=== PATIENT | female | born 1950 | race Caucasian/White ===

== ENCOUNTER → 2019-04-01 | Outpatient (CLI) | payer MEDICARE, OTHER ==
[~2019-04-01] MED LIST: ASP81TEC PO; CALC-80 PO; CALC600T PO; CALCIUM 600MG PO; ESTR1TAB14 PO; INSASP10V SQ; INSU100C; LEVO500T2 GT; LISI-556 PO; LISI5TAB PO; METO5TAB2 PO; NF-METANX PO; NITR100C PO; NOVALOG INSULIN; TRAM-21 PO
--- NOTE | 2019-04-01 16:52 | Diagnostic Imaging Report ---
INDICATION: Left forefoot pain for approximately two weeks. No known injury. TECHNIQUE: Three views of the left foot. CORRELATION STUDY: None. FINDINGS: The alignment is generally anatomic. There is no acute fracture. There is joint space narrowing and sclerosis through the tarsometatarsal-phalangeal joints, slightly more pronounced along the medial aspect. This also includes at the articulation of the navicular bones and cuneiforms. No significant calcaneal spur formation. Prominent vascular calcification. IMPRESSION: 1. Negative for acute findings of the foot. Advanced degenerative changes are present particularly at the tarsometatarsal articulations. Dictated by: Dictated on workstation # [id number]
== END ==
LOC: RAD 09:53
PROVIDERS: ATTEND Nurse Practitioner Family
DX: M19.072 Primary osteoarthritis, left ankle and foot (principal)
CPT/HCPCS: 73630

== ENCOUNTER → 2021-11-22 | Outpatient (CLI) | payer MEDICARE, OTHER ==
--- NOTE | 2021-11-22 11:02 | Diagnostic Imaging Report ---
INDICATION: Screening, postmenopausal COMPARISON: None FINDINGS: AP Spine L1-L4: [BMD (g/cm2): 1.037] [T-Score: -1.4] [Z-Score: 0.4] [BMD Previous: na] [BMD % Change: na] LT Hip Neck: [BMD (g/cm2): 0.682] [T-Score: -2.6] [Z-Score: -0.8] LT Hip Total: [BMD (g/cm2):0.766] [T-Score:-1.9] [Z-Score: -0.4] [BMD Previous: na] [BMD % Change: na] RT Hip Neck: [BMD (g/cm2):0.699] [T-Score:-2.4] [Z-Score:-0.7] RT Hip Total: [BMD (g/cm2):0.776] [T-score:-1.8] [Z-Score:-0.3] [BMD Previous:na] [BMD % Change:na] *Indicates significant change from prior examination based on 95% confidence level. World Health Organization criteria for BMD interpretation classify patients as Normal (T-score at or above -1.0), Osteopenic (T-score between -1.0 and -2.5) or Osteoporotic (T-score at or below -2.5). LIMITATIONS AND MODIFICATION: None. FRACTURE RISK (FRAX SCORE): The ten year probability of (%): Major Osteoporotic Fracture: [15.0] Hip Fracture: [4.1] IMPRESSION: 1. Osteopenia (Low bone mass). 2. See below National Osteoporosis Foundation guidelines on when to potentially initiate pharmacologic therapy. Based on the National Osteoporosis Foundation Guidelines, pharmacologic treatment should be initiated in any of the following, unless clinical conditions suggest otherwise: * Any patient with prior fragility fracture of the hip or vertebrae. A spine fracture indicates 5X risk for subsequent spine fracture and 2X risk for subsequent hip fracture. * Osteoporosis (T-score <-2.5). * Postmenopausal women and men age 50 and older with low bone mass/osteopenia (T-score between -1.0 and -2.5) by DXA and 10-year major osteoporotic fracture greater than 20% or a 10-year probability of hip fracture greater than 3%. These fracture risks are supplied above in the FRAX score, if applicable. * Clinician judgement and/or patient preferences may indicate treatment for people with 10-year fracture probabilities above or below these levels. Dictated by: Dictated on workstation # [id number]
--- NOTE | 2021-11-22 13:21 | Diagnostic Imaging Report ---
INDICATION: Routine screening. COMPARISON: 09/08/2014 and 01/08/2013. TECHNIQUE: 2D and 3D bilateral screening mammography was performed with CAD. FINDINGS: Both breasts are heterogeneously dense, limiting the sensitivity of mammography. The parenchymal pattern is stable. No mass or malignant-appearing microcalcifications are seen. The axillae are unremarkable. IMPRESSION: No mammographic features suspicious for malignancy are identified. ACR BI-RADS Category 1: Negative. Result letter will be mailed to the patient. Note: At least 10% of breast cancer is not imaged by mammography. Dictated by: Dictated on workstation # [id number]
== END ==
LOC: RAD 10:00
PROVIDERS: ATTEND Family Medicine
DX: Z12.31 Encounter for screening mammogram for malignant neoplasm of breast (principal); Z13.820 Encounter for screening for osteoporosis; M85.88 Other specified disorders of bone density and structure, other site; Z78.0 Asymptomatic menopausal state
CPT/HCPCS: 77063; 77067; 77080

== ENCOUNTER 2022-12-25 09:03 | Inpatient (IN) | payer MEDICARE, OTHER ==
[~2022-12-25] VITALS: Ht 160 cm; Wt 50.1 kg
--- NOTE | 2022-12-25 09:19 | ED General ---
General Chief Complaint: Glucose Problems Stated Complaint: DIABETIC ISSUES Source of Information: Patient Exam Limitations: No Limitations History of Present Illness Date Seen by Provider: December 25, 2022 Time Seen by Provider: 09:19 Initial Comments Patient is a 72-year-old female who presents to the emergency room with a chief complaint nausea, vomiting over the last 2 days. Patient is an insulin- dependent diabetic with an insulin pump. Her is with her and states that she is trying to drink and eat but has been unable to. She does feel lightheaded and dizzy. She however, is chronically dizzy. Last normal bowel movement was yesterday. She denies dysuria, urgency or frequency. No recent falls or injuries. No sick contacts at home. states that she has had multiple episodes of this in the past. She is a patient of Dr. CARY. No recent fevers or chills. No productive cough. Denies abdominal pain. States that she is currently a little nauseated. Timing/Duration: 2-3 Days Severity: Severe Associated Systoms: Malaise, Nausea/Vomiting, Weakness Allergies and Home Medications Allergies Coded Allergies: Penicillins (Unverified Allergy, Intermediate, hives, 03/15/10) acetaminophen (Unverified Adverse Reaction, Unknown, due to glucose monitor, 11/22/21) Patient Home Medication List Home Medication List Reviewed: Yes Amantadine HCl (Amantadine) 100 Mg Tablet, 50 MG PO BID, (Reported) Entered as Reported by: COLBY LLANOS on 12/25/221507 Last Action: Held Bimatoprost (Lumigan) 0.01 % Drops, 1 DROP OU BID, (Reported) Entered as Reported by: COLBY LLANOS on 12/25/22 090 Last Action: Converted Calcium Carbonate (Calcium) 600 Mg Calcium (1500 Mg) Tablet, 600 MG PO BID, (Reported) Entered as Reported by: COLBY LLANOS on 12/25/221507 Last Action: Held Insulin Aspart (Novolog) 100 Unit/Ml Susp, UNITS SC UD, (Reported) Entered as Reported by: COLBY LLANOS on 12/25/221507 Last Action: Continued Discontinued Medications Aspirin (Aspirin Ec 81 Mg) 81 Mg Tabec, 81 MG PO DAILY, (Reported) Discontinued Reason: Duplicate Order Entered as Reported by: ALEM KEVIN on 03/15/10 0813 Last Action: Discontinued Calcium Carbonate (Calcarb 600) 600 Mg Tablet, 600 MG PO DAILY, (Reported) Discontinued Reason: Duplicate Order Entered as Reported by: KANU SADLER on 11/29/12 1107 Last Action: Discontinued Estrogen,Con/M-Progest Acet (Prempro 0.3 Mg-1.5 Mg Tablet) 1 Each Tablet, 1 EACH PO HS, (Reported) Discontinued Reason: Duplicate Order Entered as Reported by: LUIS BENDER on 03/15/10528 Last Action: Discontinued Insulin Human Lispro (Humalog) 100 U/Ml Vial, 0 SQ, (Reported) Discontinued Reason: Duplicate Order Entered as Reported by: KANU SADLER on 11/29/12 1058 Last Action: Discontinued Lisinopril (Prinivil) 5 Mg Tablet, 5 MG PO DAILY, (Reported) Discontinued Reason: Duplicate Order Entered as Reported by: KANU SADLER on 11/29/12 1100 Last Action: Discontinued Me-Cobalam/Lm-Folate/Pyridoxal (Metanx Tablet) 1 Tab Tablet, 1 TAB PO DAILY, (Reported) Discontinued Reason: Duplicate Order Entered as Reported by: KANU SADLER on 11/29/12 1100 Last Action: Discontinued Tramadol Hcl (Ultram) 50 Mg Tablet, 50 MG PO Q6H PRN, (Reported) Discontinued Reason: Duplicate Order Entered as Reported by: LUIS BENDER on 03/15/10528 Last Action: Discontinued Review of Systems Review of Systems Constitutional: see HPI EENTM: no symptoms reported Respiratory: no symptoms reported Cardiovascular: no symptoms reported Gastrointestinal: nausea, vomiting Genitourinary: no symptoms reported Musculoskeletal: no symptoms reported Skin: no symptoms reported Psychiatric/Neurological: Weakness All Other Systems Reviewed Negative Unless Noted: Yes Past Pspyafg-Sshnyy-Jihmvw Hx Past Medical History Reproductive Disorders: No Physical Exam Vital Signs Vital Signs - First Documented 12/25/22 12/25/22 09:10 12:04 Temp 36.8 Pulse 116 Resp 22 B/P (MAP) 144/84 (104) Pulse Ox 95 O2 Delivery Room Air Capillary Refill : Height, Weight, BMI Height: '" Weight: lbs. oz. 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 Norm as Tested Skin: Normal Color, Warm/Dry Progress/Results/Core Measures Suspected Sepsis SIRS Temperature: Pulse: Respiratory Rate: Laboratory Tests 12/25/22 09:22: White Blood Count 10.2 Blood Pressure / Mean: Laboratory Tests 12/25/22 09:22: Creatinine 1.86H, Platelet Count 161, Total Bilirubin 0.6 Results/Orders Lab Results Laboratory Tests Test 12/25/22 09:22 12/25/22 09:28 12/25/22 09:53 12/25/22 10:25 Range/Units White Blood Count 10.2 4.3-11.0 10^3/uL Red Blood Count 4.87 3.80-5.11 10^6/uL Hemoglobin 14.1 11.5-16.0 g/dL Hematocrit 43 35-52 % Mean Corpuscular Volume 88 80-99 fL Mean Corpuscular Hemoglobin 29 25-34 pg Mean Corpuscular Hemoglobin Concent 33 32-36 g/dL Red Cell Distribution Width 12.7 10.0-14.5 % Platelet Count 161 130-400 10^3/uL Mean Platelet Volume 10.6 9.0-12.2 fL Immature Granulocyte % (Auto) 1 % Neutrophils (%) (Auto) 95 H 42-75 % Lymphocytes (%) (Auto) 3 L 12-44 % Monocytes (%) (Auto) 2 0-12 % Eosinophils (%) (Auto) 0 0-10 % Basophils (%) (Auto) 0 0-10 % Neutrophils # (Auto) 9.7 H 1.8-7.8 10^3/uL Lymphocytes # (Auto) 0.3 L 1.0-4.0 10^3/uL Monocytes # (Auto) 0.2 0.0-1.0 10^3/uL Eosinophils # (Auto) 0.0 0.0-0.3 10^3/uL Basophils # (Auto) 0.0 0.0-0.1 10^3/uL Immature Granulocyte # (Auto) 0.1 0.0-0.1 10^3/uL Neutrophils % (Manual) 92 % Lymphocytes % (Manual) 3 % Monocytes % (Manual) 5 % Blood Morphology Comment NORMAL Sodium Level 141 135-145 MMOL/L Potassium Level 4.3 3.6-5.0 MMOL/L Chloride Level 95 L 98-107 MMOL/L Carbon Dioxide Level 22 21-32 MMOL/L Anion Gap 24 H 5-14 MMOL/L Blood Urea Nitrogen 30 H 7-18 MG/DL Creatinine 1.86 H 0.60-1.30 MG/DL Estimat Glomerular Filtration Rate 29 BUN/Creatinine Ratio 16 Glucose Level 365 H 70-105 MG/DL Calcium Level 10.4 H 8.5-10.1 MG/DL Corrected Calcium 10.2 H 8.5-10.1 MG/DL Total Bilirubin 0.6 0.1-1.0 MG/DL Aspartate Amino Transf (AST/SGOT) 15 5-34 U/L Alanine Aminotransferase (ALT/SGPT) 15 0-55 U/L Alkaline Phosphatase 97 40-136 U/L Total Protein 7.8 6.4-8.2 GM/DL Albumin 4.2 3.2-4.5 GM/DL Lipase 5 L 8-78 U/L Beta-Hydroxybutyrate (Chem panel) 6.35 H 0.00-0.27 MMOL/L Glucometer 363 H 70-110 MG/DL Blood Gas Puncture Site R WRIST Blood Gas Patient Temperature 36.8 Arterial Blood pH 7.41 7.37-7.43 Arterial Blood Partial Pressure CO2 41 35-45 MMHG Arterial Blood Partial Pressure O2 76 L 79-93 MMHG Arterial Blood HCO3 25 23-27 MMOL/L Arterial Blood Total CO2 26.4 21.0-31.0 MMOL/L Arterial Blood Oxygen Saturation 97 94-100 % Arterial Blood Base Excess 1.0 -2.5-2.5 MMOL/L Angelo Test YES-POS Blood Gas Ventilator Setting NO Blood Gas Inspired Oxygen RA Urine Color YELLOW Urine Clarity CLEAR Urine pH 6.0 5-9 Urine Specific Mccall 1.025 H 1.016-1.022 Urine Protein TRACE H NEGATIVE Urine Glucose (UA) 3+ H NEGATIVE Urine Ketones 3+ H NEGATIVE Urine Nitrite NEGATIVE NEGATIVE Urine Bilirubin NEGATIVE NEGATIVE Urine Urobilinogen 0.2 < = 1.0 MG/DL Urine Leukocyte Esterase 2+ H NEGATIVE Urine RBC (Auto) 2+ H NEGATIVE Urine RBC 5-10 H /HPF Urine WBC >100 H /HPF Urine Squamous Epithelial Cells 10-25 H /HPF Urine Crystals NONE /LPF Urine Bacteria LARGE H /HPF Urine Casts NONE /LPF Urine Mucus NEGATIVE /LPF Urine Culture Indicated YES Micro Results Microbiology 12/25/22 Urine Culture - Preliminary, Resulted Escherichia coli Beta Strep Grp B (Agalactiae) My Orders Orders - KRYSTAL CHAU MD Ed Iv/Invasive Line Start (12/25/22 09:26) Cbc With Automated Diff (12/25/22 09:26) Comprehensive Metabolic Panel (12/25/22:26) Lipase (12/25/22:26) Ua Culture If Indicated (12/25/22:26) Beta Hydroxybutyrate (12/25/22 09:26) Ns Iv 1000 Ml (Sodium Chloride 0.9%) (12/25/22 09:26) Ondansetron Injection (Zofran Injectio (12/25/22 09:30) Manual Differential (12/25/22 09:22) Arterial Blood Gas (12/25/22 09:56) Ns Iv 1000 Ml (Sodium Chloride 0.9%) (12/25/22 10:09) Arterial Blood Draw - Obtain (12/25/22 ) Urine Culture (12/25/22 10:25) Accucheck Stat ONCE (12/25/22 11:14) Ceftriaxone Iv/Im (Rocephin Iv/Im) (12/25/22 11:15) Ondansetron Injection (Zofran Injectio (12/25/22 11:30) Medications Given in ED Vital Signs/I&O 12/25/22 12/25/22 09:10 12:04 Temp 36.8 Pulse 116 112 Resp 22 20 B/P (MAP) 144/84 (104) 139/69 Pulse Ox 95 96 O2 Delivery Room Air Room Air Capillary Refill : Progress Note : Progress Note Patient seen and evaluated by me. Evaluation today includes physical exam, CBC, Chem-12, ABG, beta hydroxy butyric acid level and urinalysis. Chest x-ray was also performed. Pertinent physical exam findings, thin ill-appearing 72-year-old female mild distress due to abdominal discomfort and nausea. Patient is noted to be quite tachycardic on physical exam with a heart rate in the 120-130 range. Blood pressure is good. She is 96% on room air. Alert and oriented with no focal neurologic deficits. Appears pale. Heart is regular, tachycardic, lungs are clear. Abdomen mildly tender in the suprapubic region without rebound or involuntary guarding. Moves all extremities equally. No lower extremity edema. Insulin pump in place. Differential diagnosis based on history and physical exam, sepsis from urinary tract infection, possible pulmonary infection, bowel obstruction, DKA. Labs and imaging interpreted by me. CBC shows a white count of 10.2 with 95% se gs hemoglobin 14.1 hematocrit of 43 platelet count of 161. Chemistry remarkable for a BUN of 30, creatinine of 1.86, CO2 22 and serum blood sugar 365. Beta hydroxybutyric acid level 6.35. ABG is reassuring with a pH of 7.41 PCO2 of 41 PO2 of 7697% on room air. Urine is grossly infected with a specific gravity of 1.025, trace protein, 3+ ketones, 3+ glucose, 2+ leukocyte esterase. 5-10 red blood cells greater than 100 white blood cells and large bacteria. Patient was treated in the emergency room with IV fluids, nausea medication and 1 g of Rocephin to treat urinary tract infection. Patient definitely has SIRS, does not quite meet sepsis criteria. Only abnormal vital signs is her pulse. She is afebrile, normal blood pressure. Abdominal exam is fairly benign making intra- abdominal pathology with regard to bowel obstruction less likely. She is borderline DKA, pH is normal. Chest x-ray does not reveal evidence of infiltrate. Case was discussed with Dr. Cary, the patient's primary care physician. She will be started on antibiotics, insulin per sliding scale. Admitted to the medical floor. Patient and family member comfortable with plan of care Diagnostic Imaging Diagonstic Imaging: Xray Plain Films/CT/US/NM/MRI: chest Comments [facility]. [place], [place] NAME: ADARSH MANDUJANO [facility] REC#: [id number] PT STATUS: ADM IN : 1950 PHYSICIAN: CRISTINE CARY MD ADMIT DATE: 12/26/22 Signed Date of Exam:12/26/22 CT CHEST/ABDOMEN WO PROCEDURE: CT chest and abdomen without contrast. TECHNIQUE: Axial images were obtained from the thoracic inlet through the iliac crest without the administration of intravenous contrast. Auto Exposure Controls were utilized during the CT exam to meet ALARA standards for radiation dose reduction. INDICATION: Abdominal pain and chest discomfort. COMPARISON: None available. FINDINGS: CT CHEST: Thyroid is normal. No supraclavicular or axillary lymphadenopathy. No discrete hilar lymphadenopathy. The heart is normal in size without pericardial effusion. Mild circumferential wall thickening throughout the distal one-half of the esophagus. No abnormality in the trachea. There are no suspicious pulmonary nodules. No pneumonia or edema. Trace right pleural effusion. No worrisome focal osseous lesions in the chest. CT ABDOMEN: No free intraperitoneal air or fluid. Unenhanced liver, gallbladder, and spleen are normal. Unenhanced pancreas is unremarkable. No adrenal mass. No renal or ureteral stones. No obstructive uropathy. No solid renal mass by noncontrast imaging. No dilated loops of bowel or surrounding inflammatory change. No worrisome focal osseous lesions in the abdomen. IMPRESSION: 1. Abnormal circumferential wall thickening in the distal one-half of the esophagus could be due to esophagitis. Malignancy could also give this appearance, and correlation with EGD is suggested. 2. Trace bilateral pleural effusions. 3. No acute or concerning abnormality within the abdomen. Dictated by: Dictated on workstation # [id number] Dict: 12/26/221720 Trans: 12/26/221752 [id number] Interpreted by: PATRIZIA CHRISTOPHER MD Electronically signed by: PATRIZIA CHRISTOPHER MD 12/26/221752 Departure Communication (Admissions) Time/Spoke to Admitting Phy: 11:[address] Cary (patient's PCP) Impression Primary Impression: UTI (urinary tract infection) Qualified Codes: N30.00 - Acute cystitis without hematuria Additional Impressions: Hyperglycemia Dehydration Disposition: ADMITTED INPATIENT Condition: Stable Admissions Decision to Admit Reason: Admit from ER (General) Decision to Admit/Date: December 25, 2022 Time/Decision to Admit Time: 11:38 Departure-Patient Inst. Referrals: CRISTINE CARY MD (PCP/Family) Primary Care Physician KRYSTAL CHAU MD December 25, 2022 09:19
[2022-12-25] MEDS ORDERED: NS IV 1000 ML 1,000 ML IV STA ×2 (09:26→10:09)
[2022-12-25] MEDS ORDERED: ONDANSETRON 4 MG/2 ML (SDV) Z0FRAN IVP ONE ×2 (09:30→11:30)
[2022-12-25 09:32] LABS: BASOPHILS % (AUTO) 0 % (0-10); EOSINOPHILS % (AUTO) 0 % (0-10); HEMATOCRIT 43 % (35-52); HEMOGLOBIN 14.1 g/dL (11.5-16.0); LYMPHOCYTES # (AUTO) 0.3 10^3/uL (1.0-4.0); LYMPHOCYTES % (AUTO) 3 % (12-44); MEAN CORPUSCULAR HEMOGLOBIN 29 pg (25-34); MEAN CORPUSCULAR HGB CONC 33 g/dL (32-36); MEAN CORPUSCULAR VOLUME 88 fL (80-99); MEAN PLATELET VOLUME 10.6 fL (9.0-12.2); MONOCYTES # (AUTO) 0.2 10^3/uL (0.0-1.0); MONOCYTES % (AUTO) 2 % (0-12); NEUTROPHILS # (AUTO) 9.7 10^3/uL (1.8-7.8); NEUTROPHILS % (AUTO) 95 % (42-75); PLATELET COUNT 161 10^3/uL (130-400); WHITE BLOOD COUNT 10.2 10^3/uL (4.3-11.0)
[2022-12-25 09:40] LABS: ALBUMIN 4.2 GM/DL (3.2-4.5); POTASSIUM 4.3 MMOL/L (3.6-5.0)
[2022-12-25 09:41] LABS: CALCIUM 10.4 MG/DL (8.5-10.1)
[2022-12-25 09:42] LABS: TOTAL PROTEIN 7.8 GM/DL (6.4-8.2)
[2022-12-25 09:44] LABS: BILIRUBIN,TOTAL 0.6 MG/DL (0.1-1.0)
[2022-12-25 09:46] LABS: CREATININE SERUM 1.86 MG/DL (0.60-1.30)
[2022-12-25 10:03] LABS: ABG OXYGEN SATURATION 97 % (94-100); ABG PCO2 41 MMHG (35-45); ABG PH 7.41 (7.37-7.43); ABG PO2 76 MMHG (79-93); ABG TCO2 26.4 MMOL/L (21.0-31.0); ALLENS TEST YES-POS; INSPIRED O2 RA; PATIENT TEMP 36.8; VENTILATOR NO
[2022-12-25 10:03] LABS: LYMPHOCYTES % (MANUAL) 3 %; MONOCYTES % (MANUAL) 5 %; NEUTROPHILS % (MANUAL) 92 %
[2022-12-25 10:04] LABS: RBC MORPH NORMAL
[2022-12-25 10:36] LABS: BILIRUBIN,URINE NEGATIVE (NEGATIVE); CLARITY,URINE CLEAR; COLOR,URINE YELLOW; GLUCOSE, URINE (UA) 3+ (NEGATIVE); KETONES,URINE 3+ (NEGATIVE); LEUKOCYTE ESTERASE ,URINE 2+ (NEGATIVE); NITRITE,URINE NEGATIVE (NEGATIVE); PROTEIN,URINE TRACE (NEGATIVE)
[2022-12-25 10:49] LABS: BACTERIA,URINE LARGE /HPF; WBC,URINE >100 /HPF
[2022-12-25] MEDS ORDERED: cefTRIAXone IV/IM 1,000 MG in NS (IVPB) 50 ML IV ONE (11:15)
[2022-12-25 13:14] VITALS: BP 139/69
[2022-12-25] MEDS: NS IV 1000 ML 1,000 ML IV SCH ×2 (13:27→20:33)
[2022-12-25] MEDS ORDERED: CALC600T91 PO (15:08)
[2022-12-25] MEDS ORDERED: INSU100V16 SC (15:08)
[2022-12-25] MEDS ORDERED: AMAN100T PO (15:08)
[2022-12-25] MEDS ORDERED: BIMA2.5D4 OU (15:09)
[2022-12-25 16:00] VITALS: BP 146/74
[2022-12-25] MEDS ORDERED: inSUlin ASPART (NovoLOG) 1 UNIT/0.01 ML (CHARGE PER UNIT) SC SCH ×2 (16:00→20:00)
--- NOTE | 2022-12-25 18:18 | History & Physical ---
History of Present Illness History of Present Illness Reason for visit/HPI Pt is a 72 y/o female who presented to the ER after having nausea and confusion. Pt is a brittle insulin dependent diabetic who has not been able to eat or drink well for several days. Her finally convinced her to go to the ER where she was found to have generalized weakness, acute elevation of her renal function and possible UTI. She was admitted for hydration and further work-up. Date of Admission December 25, 2022 at 12:19 Date Seen by a Provider: December 25, 2022 Time Seen by a Provider: 17:50 Attending Physician Cristine Cary MD Admitting Physician Admitting Physician: Cristine Cary MD Attending Physician: Cristine Cary MD Consult Allergies and Home Medications Allergies Coded Allergies: Penicillins (Unverified Allergy, Intermediate, hives, 03/15/10) acetaminophen (Unverified Adverse Reaction, Unknown, due to glucose monitor, 11/22/21) Patient Home Medication List Home Medication List Reviewed: Yes Amantadine HCl (Amantadine) 100 Mg Tablet, 50 MG PO BID, (Reported) Entered as Reported by: COLBY LLANOS on 12/25/221507 Last Action: Held Bimatoprost (Lumigan) 0.01 % Drops, 1 DROP OU BID, (Reported) Entered as Reported by: COLBY LLANOS on 12/25/221508 Last Action: Converted Calcium Carbonate (Calcium) 600 Mg Calcium (1500 Mg) Tablet, 600 MG PO BID, (Reported) Entered as Reported by: COLBY LLANOS on 12/25/221507 Last Action: Held Insulin Aspart (Novolog) 100 Unit/Ml Susp, UNITS SC UD, (Reported) Entered as Reported by: COLBY LLANOS on 12/25/221507 Last Action: Continued Discontinued Medications Aspirin (Aspirin Ec 81 Mg) 81 Mg Tabec, 81 MG PO DAILY, (Reported) Discontinued Reason: Duplicate Order Entered as Reported by: ALEM KEVIN on 03/15/10 0855 Last Action: Discontinued Calcium Carbonate (Calcarb 600) 600 Mg Tablet, 600 MG PO DAILY, (Reported) Discontinued Reason: Duplicate Order Entered as Reported by: KANU SADLER on 11/29/12 1107 Last Action: Discontinued Estrogen,Con/M-Progest Acet (Prempro 0.3 Mg-1.5 Mg Tablet) 1 Each Tablet, 1 EACH PO HS, (Reported) Discontinued Reason: Duplicate Order Entered as Reported by: LUIS BENDER on 03/15/10528 Last Action: Discontinued Insulin Human Lispro (Humalog) 100 U/Ml Vial, 0 SQ, (Reported) Discontinued Reason: Duplicate Order Entered as Reported by: KANU SADLER on 11/29/12 1058 Last Action: Discontinued Lisinopril (Prinivil) 5 Mg Tablet, 5 MG PO DAILY, (Reported) Discontinued Reason: Duplicate Order Entered as Reported by: KANU SADLER on 11/29/12 1100 Last Action: Discontinued Me-Cobalam/Lm-Folate/Pyridoxal (Metanx Tablet) 1 Tab Tablet, 1 TAB PO DAILY, (Reported) Discontinued Reason: Duplicate Order Entered as Reported by: KANU SADLER on 11/29/12 1100 Last Action: Discontinued Tramadol Hcl (Ultram) 50 Mg Tablet, 50 MG PO Q6H PRN, (Reported) Discontinued Reason: Duplicate Order Entered as Reported by: LUIS BENDER on 03/15/10528 Last Action: Discontinued Past Ytttzce-Bqvgbg-Nfuovu Hx Patient Social History Marrital Status: Living Status: lives at home with spouse Employed/Student: retired Tobacco Use?: No Smoking Status: Never a Smoker Use of E-Cig and/or Vaping dev: No Substance use?: No Alcohol Use?: No Pt feels they are or have been: No Immunizations Up To Date Tetanus Booster (TDap): More Than 5 Years Hepatitis A: No Hepatitis B: No Date of Pneumonia Vaccine: May 20, 2012 Current Status status: No status: No Advance Directives: Yes Advance Directive Location: Home Communicates: Verbally Primary Language: Faroese Preferred Spoken Language: Faroese Is interpretation needed?: No Sensory deficits: Vision impairment Implanted or Applied Medical D: Insulin pump Past Medical History Currently Using CPAP: No Currently Using BIPAP: No Parkinson's Disease Sexually Transmitted Disease: No HIV/AIDS: No Arthritis Diabetes, Insulin dep Are Your Blood Sugars Over 250: No Loss of Vision: Denies Hearing Impairment: Hard of Hearing Did You Recieve Any Treatments: No Family Medical History Reviewed and Corrections made Hypertension Review of Systems Constitutional: No chills, No diaphoresis, No fever; malaise, weakness EENTM: hearing loss; No hoarseness, No throat pain Respiratory: No cough, No dyspnea on exertion, No short of breath Cardiovascular: No edema, No palpitations Gastrointestinal: abdominal pain, loss of appetite, nausea, vomiting Genitourinary: no symptoms reported Musculoskeletal: no symptoms reported Skin: no symptoms reported Psychiatric/Neurological: Weakness All Other Systems Reviewed Negative Unless Noted: Yes Physical Exam Vital Signs Vital Signs - First Documented 12/25/22 12/25/22 09:10 12:04 Temp 36.8 Pulse 116 Resp 22 B/P (MAP) 144/84 (104) Pulse Ox 95 O2 Delivery Room Air Capillary Refill : Height, Weight, BMI Height: '" Weight: lbs. oz. kg; 19.57 BMI Method:Stated General Appearance: No Apparent Distress, Chronically ill HEENT: PERRL/EOMI, Pharynx Normal Neck: Supple Respiratory: Chest Non Tender, Lungs Clear, Normal Breath Sounds, No Accessory Muscle Use, No Respiratory Distress Cardiovascular: Regular Rate, Rhythm, No Murmur, Normal Peripheral Pulses Gastrointestinal: Normal Bowel Sounds, Soft, Tenderness (epigastric) Rectal: Deferred Back: Normal Inspection, No Vertebral Tenderness Extremity: Normal Capillary Refill, Normal Range of Motion, Non Tender, No Calf Tenderness, No Pedal Edema Neurologic/Psychiatric: Alert, Oriented x3, Other (flat affect) Skin: Normal Color, Warm/Dry Lymphatic: No Adenopathy Assessment/Plan Assessment and Plan Hyperglycemia Dehydration Acute renal failure due to dehydration Hypertension Confusion Weakness Nausea Hyperglycemia - continue with insulin pump - pt on sliding scale "A" for now as well Dehydration with Acute renal failure due to dehydration - hydrate with iv fluids, monitor symptoms, repeat labs in morning Hypertension - pt usually hypotensive - monitor pressure, treat with antihypertensives if needed. Confusion and Weakness - pt fairly clear on my eval - will monitor pt closely Nausea and Emesis - pt on zofran, monitor symptoms, hopefully will have better appetite once nausea improves Admission Diagnosis Hyperglycemia Dehydration Acute renal failure due to dehydration Hypertension Confusion Weakness Nausea Emesis Admission Status: Observation CRISTINE CARY MD December 25, 2022 18:17
[2022-12-25 20:00] VITALS: BP 150/86
[2022-12-25] MEDS: ONDANSETRON 4 MG/2 ML (SDV) Z0FRAN IV PRN (20:33)
[2022-12-25] MEDS: inSUlin ASPART (NovoLOG) 1 UNIT/0.01 ML (CHARGE PER UNIT) SC SCH (21:50)
[2022-12-25 23:33] VITALS: BP 164/82
[2022-12-26] MEDS ORDERED: inSUlin ASPART (NovoLOG) 1 UNIT/0.01 ML (CHARGE PER UNIT) SC ONE (00:15)
[2022-12-26 03:06] VITALS: BP 151/78
[2022-12-26] MEDS: ONDANSETRON 4 MG/2 ML (SDV) Z0FRAN IV PRN (03:47)
[2022-12-26] MEDS: NS IV 1000 ML 1,000 ML IV SCH ×3 (03:47→15:48)
[2022-12-26 04:51] LABS: CALCIUM 8.8 MG/DL (8.5-10.1); CREATININE SERUM 1.5 MG/DL (0.60-1.30); POTASSIUM 3.6 MMOL/L (3.6-5.0)
[2022-12-26] MEDS: inSUlin ASPART (NovoLOG) 1 UNIT/0.01 ML (CHARGE PER UNIT) SC SCH ×4 (05:22→21:17)
[2022-12-26 08:00] VITALS: BP 142/78
--- NOTE | 2022-12-26 09:41 | Progress Note ---
Subjective Subjective Date Seen by Provider: December 26, 2022 Time Seen by Provider: 08:20 Pt reports that she feels worse today than yesterday evening. Her states that he is worried about her health, does not feel as if she is okay to be taken home. She reports pain in her chest/esophageal region. She has weakness and persistent tremors from ehr Parkinsons disease. Review of Systems General: No Chills; Fatigue, Malaise Pulmonary: No Dyspnea, No Cough Cardiovascular: No: Chest Pain, Palpitations Gastrointestinal: Nausea, Vomiting, Abdominal Pain Genitourinary: Frequency Neurological: Weakness, Confusion All Other Systems Reviewed All Other Systems Reviewed: Yes Objective Exam Vital Signs Vital Signs Date Time Temp Pulse Resp B/P (MAP) Pulse Ox O2 Delivery O2 Flow Rate FiO2 12/26/22 03:06 36.6 106 14 151/78 (102) 93 Room Air 12/25/22 23:33 36.9 105 12 164/82 (109) 97 Room Air 12/25/22 20:00 96 Room Air 12/25/22 20:00 37.4 107 14 150/86 (107) 97 Room Air 12/25/22 16:00 37.5 110 16 146/74 (98) 95 Room Air 12/25/22 13:14 36.8 112 96 12/25/22 12:04 36.8 112 20 139/69 96 Room Air I & O 12/26/22 07:00 Intake Total 4645 ml Output Total 525 ml Balance 4120 ml General Appearance: Thin, Other (frail, ill appearing) Eyes: Bilateral Eye Normal Inspection, Bilateral Eye PERRL, Bilateral Eye EOMI HEENT: PERRL/EOMI Neck: Normal Inspection Respiratory: Lungs Clear, Normal Breath Sounds, No Accessory Muscle Use, No Respiratory Distress Cardiovascular: Regular Rate, Rhythm, Normal Peripheral Pulses, Tachycardia (122) Gastrointestinal: Non Tender, Soft Extremity: Normal Inspection, Normal Range of Motion, No Pedal Edema Neurologic/Psychiatric: Alert, Oriented x3, No Motor/Sensory Deficits, Normal Mood/Affect, cell 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 II-XII Norm as Tested Skin: Normal Color, Warm/Dry Results Lab Laboratory Tests 12/25/22 09:53: Blood Gas Puncture Site R WRIST, Blood Gas Patient Temperature 36.8, Arterial Blood pH 7.41, Arterial Blood Partial Pressure CO2 41, Arterial Blood Partial Pressure O2 76L, Arterial Blood HCO3 25, Arterial Blood Total CO2 26.4, Arterial Blood Oxygen Saturation 97, Arterial Blood Base Excess 1.0, Angelo Test YES-POS, Blood Gas Ventilator Setting NO, Blood Gas Inspired Oxygen RA 12/25/22 10:25: Urine Color YELLOW, Urine Clarity CLEAR, Urine pH 6.0, Urine Specific [place] 1.025H, Urine Protein TRACEH, Urine Glucose (UA) 3+H, Urine Ketones 3+H, Urine Nitrite NEGATIVE, Urine Bilirubin NEGATIVE, Urine Urobilinogen 0.2, Urine Leukocyte Esterase 2+H, Urine RBC (Auto) 2+H, Urine RBC 5-10H, Urine WBC >100H, Urine Squamous Epithelial Cells 10-25H, Urine Crystals NONE, Urine Bacteria LARGEH, Urine Casts NONE, Urine Mucus NEGATIVE, Urine Culture Indicated YES 12/25/22 16:18: Glucometer 378H 12/25/22 20:54: Glucometer 450*H 12/25/22 23:30: Glucometer 337H 12/26/22 00:35: Glucometer 274H 12/26/22 04:11: Sodium Level 142, Potassium Level 3.6, Chloride Level 104, Carbon Dioxide Level 24, Anion Gap 14, Blood Urea Nitrogen 27H, Creatinine 1.50H, Estimat Glomerular Filtration Rate 37, BUN/Creatinine Ratio 18, Glucose Level 196H, Calcium Level 8.8 12/26/22 07:23: Glucometer 178H Microbiology 12/25/22 Urine Culture - Preliminary, Resulted Escherichia coli Beta Strep Grp B (Agalactiae) Assessment/Plan Assessment/Plan Assessment and Plan Hyperglycemia Dehydration Urinary tract infection - EColi Acute renal failure due to dehydration Hypertension Confusion Weakness Nausea Hyperglycemia - continue with insulin pump - pt was on sliding scale "A" - changed to sliding scale "B" due to persistently elevated blood glucose levels. Dehydration with Acute renal failure due to dehydration - hydrate with iv fluids, monitor symptoms, repeat labs in morning Urinary tract infection - EColi - pt on rocephin continue with current management Hypertension - pt usually hypotensive - monitor pressure, treat with antihypertensives if needed. Confusion and Weakness - pt fairly clear on my eval - will monitor pt closely Nausea and Emesis - pt on zofran, monitor symptoms, hopefully will have better appetite once nausea improves Pt had a positive cologuard in the office, will check CT of chest, abdomen CRISTINE STUBBS MD December 26, 2022 09:41
[2022-12-26] MEDS ORDERED: inSUlin ASPART (NovoLOG) 1 UNIT/0.01 ML (CHARGE PER UNIT) SC SCH (10:00)
[2022-12-26] MEDS: cefTRIAXone 1 GM/NS 50 ML IVPB IV SCH ×2 (10:45)
[2022-12-26] MEDS: PANTOPRAZOLE 40 MG (PROTONIX) VIAL IV SCH ×2 (10:45→20:27)
[2022-12-26] MEDS ORDERED: ACETAMINOPHEN 500 MG TAB (TYLENOL) PO PRN (11:00)
[2022-12-26 13:16] VITALS: BP 128/61
[2022-12-26] MEDS: DICLOFENAC 1% GEL 100 GM (VOLTAREN) TUBE TOP SCH ×3 (13:50→20:28)
[2022-12-26 16:41] VITALS: BP 156/69
--- NOTE | 2022-12-26 17:27 | Diagnostic Imaging Report ---
PROCEDURE: CT chest and abdomen without contrast. TECHNIQUE: Axial images were obtained from the thoracic inlet through the iliac crest without the administration of intravenous contrast. Auto Exposure Controls were utilized during the CT exam to meet ALARA standards for radiation dose reduction. INDICATION: Abdominal pain and chest discomfort. COMPARISON: None available. FINDINGS: CT CHEST: Thyroid is normal. No supraclavicular or axillary lymphadenopathy. No discrete hilar lymphadenopathy. The heart is normal in size without pericardial effusion. Mild circumferential wall thickening throughout the distal one-half of the esophagus. No abnormality in the trachea. There are no suspicious pulmonary nodules. No pneumonia or edema. Trace right pleural effusion. No worrisome focal osseous lesions in the chest. CT ABDOMEN: No free intraperitoneal air or fluid. Unenhanced liver, gallbladder, and spleen are normal. Unenhanced pancreas is unremarkable. No adrenal mass. No renal or ureteral stones. No obstructive uropathy. No solid renal mass by noncontrast imaging. No dilated loops of bowel or surrounding inflammatory change. No worrisome focal osseous lesions in the abdomen. IMPRESSION: 1. Abnormal circumferential wall thickening in the distal one-half of the esophagus could be due to esophagitis. Malignancy could also give this appearance, and correlation with EGD is suggested. 2. Trace bilateral pleural effusions. 3. No acute or concerning abnormality within the abdomen. Dictated by: Dictated on workstation # [id number]
[2022-12-26] MEDS ORDERED: fluCOnazole (DIFLUCAN) 100 MG TAB PO NR (18:00)
[2022-12-26] MEDS: LATANOPROST 0.005% (XALATAN) OPHTH SOLN 2.5 ML OU SCH (20:28)
[2022-12-26 20:49] VITALS: BP 142/80
[2022-12-26] MEDS ORDERED: NON-FORMULARY MEDICATION 1 EA EA (Bimatoprost (Lumigan) 1 DROP) OU SCH (21:00)
[2022-12-26 23:41] VITALS: BP 152/82
[2022-12-27 04:00] VITALS: BP 137/80
[2022-12-27] MEDS: NS IV 1000 ML 1,000 ML IV SCH ×2 (04:46→17:30)
[2022-12-27 04:48] LABS: MEAN PLATELET VOLUME 10.6 fL (9.0-12.2); WHITE BLOOD COUNT 9.2 10^3/uL (4.3-11.0)
[2022-12-27 04:56] LABS: POTASSIUM 3.4 MMOL/L (3.6-5.0)
[2022-12-27 04:57] LABS: CALCIUM 8.5 MG/DL (8.5-10.1)
[2022-12-27 05:02] LABS: CREATININE SERUM 1.07 MG/DL (0.60-1.30)
[2022-12-27] MEDS: inSUlin ASPART (NovoLOG) 1 UNIT/0.01 ML (CHARGE PER UNIT) SC SCH ×4 (05:27→20:42)
[2022-12-27 07:55] VITALS: BP 144/84
--- NOTE | 2022-12-27 08:01 | Progress Note ---
Subjective Review of Systems General: No Chills; Fatigue, Malaise Pulmonary: No Dyspnea, No Cough Cardiovascular: No: Chest Pain, Palpitations Gastrointestinal: Nausea, Vomiting, Abdominal Pain Genitourinary: Frequency Neurological: Weakness, Confusion All Other Systems Reviewed All Other Systems Reviewed: Yes Objective Exam Vital Signs Vital Signs Date Time Temp Pulse Resp B/P (MAP) Pulse Ox O2 Delivery O2 Flow Rate FiO2 12/27/22 07:55 36.8 83 18 144/84 (104) 95 Room Air 12/27/22 04:00 36.6 88 18 137/80 (99) 94 Room Air 12/26/22 23:41 36.6 91 18 152/82 (105) 94 Room Air 12/26/22 20:49 37.3 94 18 142/80 (100) 94 Room Air 12/26/22 20:00 Room Air 12/26/22 16:41 37.1 102 18 156/69 (98) Room Air 12/26/22 13:16 36.6 92 18 128/61 (83) 95 Room Air 12/26/22 12:00 37.1 88 16 I & O 12/27/22 06:59 Intake Total 750 ml Balance 750 ml General Appearance: Thin, Other (frail, ill appearing) Eyes: Bilateral Eye Normal Inspection, Bilateral Eye PERRL, Bilateral Eye EOMI HEENT: PERRL/EOMI Neck: Normal Inspection Respiratory: Lungs Clear, Normal Breath Sounds, No Accessory Muscle Use, No Respiratory Distress Cardiovascular: Regular Rate, Rhythm, Normal Peripheral Pulses, Tachycardia (122) Gastrointestinal: Non Tender, Soft Rectal: Deferred Back: Normal Inspection, No Vertebral Tenderness Extremity: Normal Inspection, Normal Range of Motion, No Pedal Edema Neurologic/Psychiatric: Alert, Oriented x3, No Motor/Sensory Deficits, Normal Mood/Affect, central 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-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 Norm as Tested Skin: Normal Color, Warm/Dry Lymphatic: No Adenopathy Results Lab Laboratory Tests 12/26/22 16:39: Glucometer 248H 12/26/22 20:59: Glucometer 223H 12/27/22 04:32: White Blood Count 9.2, Red Blood Count 4.17, Hemoglobin 12.0, Hematocrit 36, Mean Corpuscular Volume 87, Mean Corpuscular Hemoglobin 29, Mean Corpuscular Hemoglobin Concent 33, Red Cell Distribution Width 12.6, Platelet Count 122L, Mean Platelet Volume 10.6, Percent Immature Platelet Fraction 2.4, Sodium Level 139, Potassium Level 3.4L, Chloride Level 104, Carbon Dioxide Level 20L, Anion Gap 15H, Blood Urea Nitrogen 15, Creatinine 1.07, Estimat Glomerular Filtration Rate 56, BUN/Creatinine Ratio 14, Glucose Level 157H, Calcium Level 8.5 Microbiology 12/25/22 Urine Culture - Preliminary, Resulted Escherichia coli Beta Strep Grp B (Agalactiae) Assessment/Plan Assessment/Plan Admission Dx Hyperglycemia Dehydration Acute renal failure due to dehydration Hypertension Confusion Weakness Nausea Emesis Assessment and Plan Hyperglycemia Dehydration Urinary tract infection - EColi Acute renal failure due to dehydration Hypertension Confusion Weakness Nausea Hyperglycemia - continue with insulin pump - pt was on sliding scale "A" - changed to sliding scale "B" due to persistently elevated blood glucose levels. Dehydration with Acute renal failure due to dehydration - hydrate with iv fluids, monitor symptoms, repeat labs in morning Urinary tract infection - EColi - pt on rocephin continue with current management Hypertension - pt usually hypotensive - monitor pressure, treat with antihypertensives if needed. Confusion and Weakness - pt fairly clear on my eval - will monitor pt closely Nausea and Emesis - pt on zofran, monitor symptoms, hopefully will have better appetite once nausea improves Pt had a positive cologuard in the office, will check CT of chest, abdomen Admission Dx Hyperglycemia Dehydration Acute renal failure due to dehydration Hypertension Confusion Weakness Nausea Emesis Clinical Quality Measures Admission Status Admission Dx Hyperglycemia Dehydration Acute renal failure due to dehydration Hypertension Confusion Weakness Nausea Emesis CRISTINE STUBBS MD December 27, 2022 08:01
[2022-12-27] MEDS: PANTOPRAZOLE 40 MG (PROTONIX) VIAL IV SCH ×2 (09:34→19:39)
[2022-12-27] MEDS: fluCOnazole (DIFLUCAN) 100 MG TAB PO SCH (09:35)
[2022-12-27] MEDS: DICLOFENAC 1% GEL 100 GM (VOLTAREN) TUBE TOP SCH ×4 (09:38→19:39)
[2022-12-27] MEDS: cefTRIAXone 1 GM/NS 50 ML IVPB IV SCH ×2 (11:34)
--- NOTE | 2022-12-27 11:50 | Physical Therapy Evaluation ---
PT Evaluation-General Medical Diagnosis Admission Date December 26, 2022 at 09:41 Medical Diagnosis: UTI, Nausea, Confusion Onset Date: December 26, 2022 Therapy Diagnosis Therapy Diagnosis: Gait deficit Precautions Precautions/Isolations: Fall Prevention, Standard Precautions Weight Bear Status Right Lower Extremity: Right Full Weight Bearing Left Lower Extremity: Left Full Weight Bearing Referral Physician: Dr. Cary Reason for Referral: Evaluation/Treatment Social History Home: Multilevel Current Living Status: Spouse Entry Into Home: Stairs With Railing PT Steps Into Home: 4 PT Steps Inside Home: 20 Prior Prior Level of Function SCALE: Activities may be completed with or without assistive devices. 8-Rbnxqgcotg-goyalsj completes the activity by him/herself with no assistance from a helper. 5-Set-up or Clean-up Assistance-helper sets up or cleans up; patient completes activity. [place] assists only prior to or following the activity. 4-Supervision or Touching Assistance-helper provides verbal cues and/or touching/steadying and/or contact guard assistance as patient completes activity. Assistance may be provided throughout the activity or intermittently. 3-Partial/Moderate Assistance-helper does LESS THAN HALF the effort. [place] lifts, holds or supports trunk or limbs, but provides less than half the effort. 2-Substantial/Maximal Assistance-helper does MORE THAN HALF the effort. [place] lifts or holds trunk or limbs and provides more than half the effort. 4-Azfxpaiug-coavaq does ALL the effort. Patient does none of the effort to complete the activity. Or, the assistance of 2 or more helpers is required for the patient to complete the activity. If activity was not attempted, code reason: 7-Patient Refused. 9-Not Applicable-not attempted and the patient did not perform the activity before the current illness, exacerbation or injury. 10-Not Attempted due to Environmental Limitations-(lack of equipment, weather restraints, etc.). 88-Not Attempted due to Medical Conditions or Safety Concerns. Bed Mobility: 6 Transfers (B,C,W/C): 6 Gait: 6 Stairs: 6 Indoor Mobility (Ambulation): Independent Stairs: Independent Prior Devices Use: None PT Evaluation-Current Subjective Patient lying supine in bed upon PT arrival, agreeable to treatment. Patient rates pain at 0/10 currently. Objective Patient Orientation: Person, Place, Time, Situation Attachments: IV ROM/Strength ROM Lower Extremities WFLs BLEs Strength Lower Extremities 3+/5 BLEs all planes Sensory Vision: Functional Hearing: Functional Sensation Right Lower Extremit: Intact Sensation Left Lower Extremity: Intact Transfers Roll Left to Right (QC): 4 Sit to Lying (QC): 4 Lying to Sitting/Side of Bed(Q: 4 Sit to Stand (QC): 4 Chair/Byj-tf-Xveci Xfer(QC): 4 Toilet Transfer (QC): 4 Gait Does the Patient Walk?: Yes Mode of Locomotion: Walk Anticipated Mode of Locomotion: Walk Walk 10 feet (QC): 5 Walk 50 ft with 2 Turns(QC): 5 Walk 150 ft (QC): 5 Distance: 150' Gait Assistive Device: FWW Balance Sitting Static: Good Sitting Dynamic: Good Standing Static: Fair Standing Dynamic: Fair Assessment/Needs Patient tolerated treatment well. She performs all observed bed mobility and transfers with SBA. Patient requires assistance with the IV pole, however is able to ambulate sans assistance and device. Patient ambulates 150' with SBA and PT pushing the IV pole. Patient in bed post treatment with all needs met, nursing notified, call light in hand and family in the room. Rehab Potential: Good PT Cottrell Blower Goals Cottrell Blower Goals PT Cottrell Blower Goals Time Frame: January 17, 2023 Roll Left & Right (QC): 6 Sit to Lying (QC): 6 Lying-Sitting on Side/Bed(QC): 6 Sit to Stand (QC): 6 Chair/Npp-mh-Uezxj Xfer(QC): 6 Toilet Transfer (QC): 6 Does the Patient Walk: Yes Walk 10 feet (QC): 6 Walk 50ft with 2 Turns (QC): 6 Walk 150 ft (QC): 6 1 Step (curb) (QC): 4 4 Steps (QC): 4 12 Steps (QC): 4 PT Plan Problem List Problem List: Activity Tolerance, Functional Strength, Safety, Balance, Gait, Transfer, Bed Mobility, ROM Treatment/Plan Treatment Plan: Continue Plan of Care Treatment Plan: Bed Mobility, Education, Functional Activity Rachel, Functional Strength, Group Therapy, Gait, Safety, Therapeutic Exercise, Transfers Treatment Duration: January 17, 2023 Frequency: 6 times per week Estimated Hrs Per Day: .25 hour per day Patient and/or Family Agrees t: Yes Safety Risks/Education Patient Education: Gait Training, Transfer Techniques Teaching Recipient: Patient Teaching Methods: Demonstration, Discussion Response to Teaching: Verbalize Understanding, Return Demonstration Time Time In: 1113 Time Out: 1125 DATE: December 27, 2022 Total Billed Treatment Time: 12 Total Billed Treatment Visit, TENNILLE JUÁREZ PT December 27, 2022 11:50
[2022-12-27 12:06] VITALS: BP 159/97
[2022-12-27] MEDS: ONDANSETRON 4 MG/2 ML (SDV) Z0FRAN IV PRN (14:44)
[2022-12-27 16:20] VITALS: BP 154/80
--- NOTE | 2022-12-27 17:56 | Progress Note-Pre Operative ---
Pre-Operative Progress Note Date of Available H&P: December 27, 2022 Date H&P Reviewed: December 27, 2022 Time H&P Reviewed: 18:00 History & Physical: No changes noted Pre-Operative Diagnosis: GERD, distal esophageal lesion. MONI GOLDSTEIN MD December 27, 2022 17:56
--- NOTE | 2022-12-27 18:29 | CONSULTATION REPORT ---
DATE OF SERVICE: 12/27/2022 ATTENDING PRIMARY CARE PHYSICIAN: Dr. Shelly Cary. HISTORY OF PRESENT ILLNESS: The patient is a 72-year-old female, who presented to the Emergency Department with confusion as well as nausea. The patient does have a number of medical comorbidities including being a brittle insulin-dependent diabetic and states that she was unable to eat or drink several days before admission. The patient was evaluated and found to be dehydrated and acute renal failure as well as possible urinary tract infection. The patient was admitted, hydrated and her physical capacity did improved. The patient did have some issues with substernal chest pressure and pain and states that she has had a history of gastroesophageal reflux disease and reports that this has worsened, especially since being in the hospital. She does not report any episodes of hematemesis, no coffee-ground emesis. She also does not report any red blood per rectum, nor any dark tarry stools. PAST MEDICAL HISTORY: Insulin-dependent diabetes, hearing loss, Parkinson's disease, degenerative joint disease. PAST SURGICAL HISTORY: None known. ALLERGIES: PENICILLIN, ACETAMINOPHEN. MEDICATIONS: Amantadine 50 mg b.i.d., aspartate insulin daily, aspirin 81 mg daily, Prempro 0.3-1.5 mg daily, lispro insulin daily, lisinopril 5 mg daily, tramadol 50 mg q. 6 hours p.r.n. SOCIAL HISTORY: Negative smoke, negative alcohol. FAMILY HISTORY: Noncontributory. VITAL SIGNS: Temperature 37.2, blood pressure 154/80, pulse 99, respirations 18, pulse ox 98% on room air. REVIEW OF SYSTEMS: Well-nourished female, currently in no acute distress. She is not experiencing any shortness of breath or difficulty breathing. No chest pain, palpitations, diaphoresis. No nausea, vomiting; however, has had some substernal chest pressure sensation as well as epigastric burning sensation. No hematemesis, no coffee-ground emesis. No change in bowel habits. No fever, chills, no recent inadvertent weight loss. All other review of systems negative. PHYSICAL EXAMINATION: CHEST: Clear. Good breath sounds bilaterally. HEART: Regular. No murmurs. EXTREMITIES: No lower extremity edema. Negative Homans sign. HEENT: No scleral icterus. No cervical lymphadenopathy. ABDOMEN: Soft, nondistended. There is mild discomfort in the epigastric region upon deep palpation. SKIN: Warm, dry. LABORATORY DATA: WBC 9.2, hemoglobin 12.0, hematocrit 36, platelets 122, BUN 15, creatinine 1.07, blood glucose 219. Urinalysis: 2+ leukocyte esterase, large amount of bacteria. A CT scan showed thickening of the distal third of the esophagus. ASSESSMENT AND PLAN: A 72-year-old female with symptomatic reflux as well as a lesion detected on the lower third of the esophagus and we will proceed with an EGD as well as biopsies as appropriate on this admission. Job ID: [id number] DocumentID: [id number] Dictated Date: 12/27/2022 17:53:47 Elevated Guard Date: 12/27/2022 18:27:00 Dictated By: MONI GOLDSTEIN MD
[2022-12-27 19:38] VITALS: BP 134/71
[2022-12-27] MEDS: LATANOPROST 0.005% (XALATAN) OPHTH SOLN 2.5 ML OU SCH (19:39)
[2022-12-28] VITALS (9 sets, daily range): BP systolic 142–188; BP diastolic 75–92
[2022-12-28] MEDS: inSUlin ASPART (NovoLOG) 1 UNIT/0.01 ML (CHARGE PER UNIT) SC SCH ×3 (06:05→16:56)
[2022-12-28] MEDS: NS IV 1000 ML 1,000 ML IV SCH (06:13)
[2022-12-28] MEDS: fluCOnazole (DIFLUCAN) 100 MG TAB PO SCH (08:21)
[2022-12-28] MEDS: PANTOPRAZOLE 40 MG (PROTONIX) VIAL IV SCH (08:21)
[2022-12-28] MEDS: DICLOFENAC 1% GEL 100 GM (VOLTAREN) TUBE TOP SCH ×2 (08:22→12:56)
[2022-12-28] MEDS ORDERED: FLUC100T10 PO (09:22)
[2022-12-28] MEDS ORDERED: SULF-221 PO (09:22)
[2022-12-28] MEDS ORDERED: PANT40TA52 PO ×2 (09:22→17:21)
--- NOTE | 2022-12-28 09:24 | Discharge Inst-Simple/Standard ---
Discharge Inst-Standard Reconcile Patient Problems Problems Reviewed?: Yes Discharge Medications New, Converted or Re-Newed RX: Transmitted to Pharmacy Patient Instructions/Follow Up Plan of Care/Instructions/FU: 1 wk [facility] Activity as Tolerated: Yes Discharge Diet: ADA Diet Health Concerns: urinary tract infection, diabetes, esophagitis, weakness Return to The Hospital For: any concern for recurrent urinary tract infection, confusion, weakness, or other lifethreatening illness or injury CRISTINE STUBBS MD December 28, 2022 09:24
[2022-12-28] MEDS: cefTRIAXone 1 GM/NS 50 ML IVPB IV SCH ×2 (11:34)
--- NOTE | 2022-12-28 12:35 | Diagnostic Imaging Report ---
PROCEDURE: US Abdomen, limited. TECHNIQUE: Multiple realtime grayscale images were obtained over the abdomen in various projections. INDICATION: Cholelithiasis. Liver is normal in size at 13 cm. Portal vein is patent and shows normal direction of flow. No liver mass is identified. Gallbladder does contain small stones. No significant wall thickening is seen. There is no pericholecystic fluid identified. Extra hepatic bile duct is minimally prominent at 7 mm. Pancreas is partially obscured but otherwise unremarkable. Aorta and IVC are unremarkable. Right kidney is without calculi or hydronephrosis. No ascites. IMPRESSION: Cholelithiasis without evidence of acute cholecystitis. Extrahepatic bile duct is slightly prominent at 7 mm. Dictated by: Dictated on workstation # [id number]
[2022-12-28] MEDS ORDERED: HURRICAINE EXT TUBE (BENZOCAINE) XX PRN (14:45)
[2022-12-28] MEDS ORDERED: LIDOCAINE JELLY 2% 6 ML SYRINGE MM PRN (14:45)
[2022-12-28] MEDS ORDERED: LACTATED RINGERS 1,000 ML IV STA (14:45)
--- NOTE | 2022-12-28 14:51 | Physical Therapy Daily Note ---
PT Daily Note-Current Subjective Patient lying supine in bed upon PT arrival, agreeable to treatment. Patient rates pain at 0/10 currently. Reports she is supposed to be going for a scope soon. Pain Section J - Health Conditions 1. Rarely or not at all 2. Occasionally 3. Frequently 4. Almost constantly 8. Unable to answer Pain Effect on Sleep: 1 Pain Interference with Therapy: 1 Pain Interference w/Day-to-Day: 1 Mental Status Patient Orientation: Person, Place, Time, Situation Transfers SCALE: Activities may be completed with or without assistive devices. 8-Sujyucnzjr-mqdamut completes the activity by him/herself with no assistance from a helper. 5-Set-up or Clean-up Assistance-helper sets up or cleans up; patient completes activity. [place] assists only prior to or following the activity. 4-Supervision or Touching Assistance-helper provides verbal cues and/or touching/steadying and/or contact guard assistance as patient completes activity. Assistance may be provided throughout the activity or intermittently. 3-Partial/Moderate Assistance-helper does LESS THAN HALF the effort. [place] lifts, holds or supports trunk or limbs, but provides less than half the effort. 2-Substantial/Maximal Assistance-helper does MORE THAN HALF the effort. [place] lifts or holds trunk or limbs and provides more than half the effort. 5-Colpxjjve-bseolg does ALL the effort. Patient does none of the effort to complete the activity. Or, the assistance of 2 or more helpers is required for the patient to complete the activity. If activity was not attempted, code reason: 7-Patient Refused. 9-Not Applicable-not attempted and the patient did not perform the activity before the current illness, exacerbation or injury. 10-Not Attempted due to Environmental Limitations-(lack of equipment, weather restraints, etc.). 88-Not Attempted due to Medical Conditions or Safety Concerns. Roll Left & Right (QC): 6 Sit to Lying (QC): 6 Lying to Sitting/Side of Bed(Q: 6 Sit to Stand (QC): 6 Chair/Htc-oj-Kesay Xfer(QC): 4 Weight Bearing Right Lower Extremity: Right Full Weight Bearing Left Lower Extremity: Left Full Weight Bearing Gait Training Does the Patient Walk?: Yes Distance: 350 feet Walk 10 feet (QC): 6 Walk 50 ft with 2 Turns(QC): 4 Walk 150 ft (QC): 4 Gait Assistive Device: None Assessment Current Status: Good Progress Patient tolerated treatment well. She performs all observed bed mobility and transfers with SBA to Independent. Patient requires assistance with the IV pole, however is able to ambulate sans assistance and device. Patient ambulates 350' with SBA and PT pushing the IV pole. Patient in bed post treatment with all needs met, nursing notified, call light in hand and family in the room. PT Commercial Title Examiner Goals Intermediate Goals PT Commercial Title Examiner Goals Time Frame: January 17, 2023 Roll Left & Right (QC): 6 Sit to Lying (QC): 6 Lying-Sitting on Side/Bed(QC): 6 Sit to Stand (QC): 6 Chair/Lmp-xf-Sbdqc Xfer(QC): 6 Toilet Transfer (QC): 6 Does the Patient Walk: Yes Walk 10 feet (QC): 6 Walk 50ft with 2 Turns (QC): 6 Walk 150 ft (QC): 6 1 Step (curb) (QC): 4 4 Steps (QC): 4 12 Steps (QC): 4 PT Plan Treatment/Plan Treatment Plan: Continue Plan of Care Treatment Plan: Bed Mobility, Education, Functional Activity Rachel, Functional Strength, Group Therapy, Gait, Safety, Therapeutic Exercise, Transfers Treatment Duration: January 17, 2023 Frequency: 6 times per week Estimated Hrs Per Day: .25 hour per day Patient and/or Family Agrees t: Yes Safety Risks/Education Patient Education: Gait Training, Transfer Techniques Teaching Recipient: Patient Teaching Methods: Demonstration, Discussion Response to Teaching: Verbalize Understanding, Return Demonstration Time Time In: 1314 Time Out: 1326 DATE: December 28, 2022 Total Billed Treatment Time: 12 Total Billed Treatment Visit, TENNILLE Doll PT December 28, 2022 14:51
[2022-12-28] MEDS ORDERED: LIDOCAINE JELLY 2% 6 ML SYRINGE ONE (15:36)
[2022-12-28] MEDS ORDERED: proPOfol 200 MG/20 ML (DIPRIVAN) VIAL IV ONE (15:46)
--- NOTE | 2022-12-28 16:08 | Anesthesia-General Post-Op ---
MAC Patient Condition Mental Status/LOC: Same as Preop Cardiovascular: Satisfactory Nausea/Vomiting: Absent Respiratory: Satisfactory Pain: Controlled Complications: Absent Post Op Complications Complications None Follow Up Care/Instructions Patient Instructions None needed. Anesthesiology Discharge Order Discharge Order Patient is doing well, no complaints, stable vital signs, no apparent adverse anesthesia problems. No complications reported per nursing. GAIL TOURE DO December 28, 2022 16:08
--- NOTE | 2022-12-28 16:26 | Progress Note-Post Operative ---
Post-Operative Progess Note Surgeon (s)/Acetylene Operator (s) Surgeon MONI GOLDSTEIN MD Acetylene Operator: none Pre-Operative Diagnosis GERD, distal esophageal lesion. Post-Operative Diagnosis reflux esophagitis(grade C) with clinical barretts esophagus, small-mod HH(2.5cm), mild-mod gastritis. Procedure & Operative Findings Date of Procedure 12/28/22 Procedure Performed/Findings EGD with bx. Anesthesia Type mac Estimated Blood Loss Estimated blood loss (mL): minimal Specimens/Packing Specimens Removed ge jxn, antrum MONI GOLDSTEIN MD December 28, 2022 16:26
[2022-12-28] MEDS ORDERED: SUCR1TAB36 PO (17:21)
--- NOTE | 2022-12-28 17:22 | Discharge Summary ---
Diagnosis/Chief Complaint Date of Admission December 26, 2022 at 09:41 Date of Discharge Discharge Date: December 28, 2022 Discharge Time: 1730 Reason Hospital Visit Pt is a 72 y/o female who presented to the ER after having nausea and confusion. Pt is a brittle insulin dependent diabetic who has not been able to eat or drink well for several days. Her finally convinced her to go to the ER where she was found to have generalized weakness, acute elevation of her renal function and possible UTI. She was admitted for hydration and further work-up. Discharge Summary Discharge Physical Examination Allergies: Coded Allergies: Penicillins (Unverified Allergy, Intermediate, hives, 03/15/10) acetaminophen (Unverified Adverse Reaction, Unknown, due to glucose monitor, 11/22/21) Vitals & I&Os Vital Signs Date Time Temp Pulse Resp B/P (MAP) Pulse Ox O2 Delivery O2 Flow Rate FiO2 12/28/22 17:13 36.3 92 93 21 12/28/22 16:24 18 150/76 (100) Room Air 12/28/22 16:00 10.00 Hospital Course Pending Labs Laboratory Tests 12/28/22 10:52: Glucometer 181 12/28/22 16:56: Glucometer 151 Discharge Instructions to patient/family Please see electronic discharge instructions given to patient. Discharge Medications Reviewed and agree with Discharge Medication list on patient's Discharge Instruction sheet CRISTINE STUBBS MD December 28, 2022 17:22
[2022-12-28] MEDS ORDERED: RT-ALBUTEROL SULF 2.5 MG/3 ML PRE-MIX VIAL INH PRN (18:00)
--- NOTE | 2022-12-28 23:46 | OPERATIVE REPORT ---
DATE OF SERVICE: 12/28/2022 ATTENDING PRIMARY CARE PHYSICIAN: Shelly Cary MD PREOPERATIVE DIAGNOSES: Gastroesophageal reflux disease and esophageal thickening identified on CT scan. POSTOPERATIVE DIAGNOSES: Reflux esophagitis, Harrison grade C with clinical Leyva's esophagus. No strictures, small to moderate size hiatal hernia approximately 2.5 cm in size, mild to moderate gastritis, no distal obstructions. PROCEDURE: EGD with biopsy. SURGEON: Moni Goldstein MD ANESTHESIA: Monitored anesthesia care. ESTIMATED BLOOD LOSS: Minimal. FINDINGS: Reflux esophagitis, Harrison grade C with clinical Leyva's esophagus. No strictures, small to moderate size hiatal hernia approximately 2.5 cm in size, mild to moderate gastritis, no distal obstructions. DISPOSITION: The patient tolerated the procedure well. INDICATIONS: The patient is a 72-year-old female who was admitted due to hyperglycemia. She has a longstanding history of being a brittle diabetic and due to her hyperglycemia, she felt extremely weak, was dehydrated and was in acute kidney failure. The patient also developed a urinary tract infection. The patient was admitted and medically managed with IV fluids as well as insulin. The patient did have some issues with epigastric burning sensation. Upon further questioning, she reports that she has had a longstanding history of gastroesophageal reflux disease; however, has only been taking nzjn-hnc-iypuafb antacids. She does not report any episodes of dysphagia as well as no hematemesis, no coffee-ground emesis. DESCRIPTION OF PROCEDURE: The patient was brought to the endoscopy suite and laid in the left lateral decubitus position. After adequate IV pain and sedative medications and monitored anesthesia care, the mouthpiece was applied. The endoscope was placed in the mouth, visualizing the pharynx and hypopharyngeal region. Vocal cords, epiglottis and vallecula identified and appeared to be normal. The endoscope was then gently intubated in the esophageal opening and esophagus insufflated. The endoscope was then advanced through the first, second and third portions of esophagus. At the level of the GE junction, a reflux esophagitis, Harrison grade C identified with some mild edema and changes consistent with clinical Leyva's esophagus. Multiple biopsies were taken with forceps with visualization of good hemostasis. There were no discrete masses identified. The endoscope was then advanced in the stomach and endoscope retroflexed visualizing a small to moderate size hiatal hernia approximately 2.5 cm in size. There was a caup-bd-ohbhcheo gastritis. No ulcers, polyps, or any neoplasms. A biopsy was taken of the stomach, antrum to rule out H. pylori with visualization of good hemostasis. The endoscope was then advanced through the pylorus and the first and second portion of the duodenum, which appeared normal with no distal obstructions. The endoscope was then slowly withdrawn while taking a second look and suctioning of residual air with no additional findings. The patient tolerated the procedure well. We will recommend the necessary lifestyle and dietary accommodation including small and more frequent meals, avoidance of eating at night as well as head elevation while lying supine. We will also recommend a moderation of coffee and caffeinated beverages as well as spicy, greasy and acidic foods. We will also start her on Protonix 40 mg daily; however, also add Carafate 1 gram q.i.d. for the next 2 weeks, then on a p.r.n. basis. We will also await the pathology results of the biopsies; however, due to the detection of clinical Leyva's esophagus, she will at least need to followup EGD in approximately 3 years. Job ID: [id number] DocumentID: [id number] Dictated Date: 12/28/2022 16:08:36 [employer] Date: 12/28/2022 23:44:00 Dictated By: MONI GOLDSTEIN MD
== END 2022-12-28 17:45 | disposition home or self-care (01) | DRG 683 ==
LOC: EDUNIT# 09:03 → ER 09:05 → CSD 12:19 → OBSVTOIN 12-26 09:41 → 4TH 12-26 13:00
PROVIDERS: ADMIT Family Medicine; ATTEND Family Medicine
PROC: 0DB78ZX Excision of Stomach, Pylorus, Via Natural or Artificial Opening Endoscopic, Diagnostic (ICD-10-PCS; 2022-12-28)
PROC: 0DB48ZX Excision of Esophagogastric Junction, Via Natural or Artificial Opening Endoscopic, Diagnostic (ICD-10-PCS; principal; 2022-12-28 15:49)
DX: N17.9 Acute kidney failure, unspecified (principal); N39.0 Urinary tract infection, site not specified; E86.0 Dehydration; R41.0 Disorientation, unspecified; E11.65 Type 2 diabetes mellitus with hyperglycemia; Z66 Do not resuscitate; I10 Essential (primary) hypertension; G20 Parkinson's disease; K21.00 Gastro-esophageal reflux disease with esophagitis, without bleeding; K22.70 Barrett's esophagus without dysplasia; K29.70 Gastritis, unspecified, without bleeding; R53.1 Weakness; H54.7 Unspecified visual loss; H91.90 Unspecified hearing loss, unspecified ear; M19.90 Unspecified osteoarthritis, unspecified site; B96.20 Unspecified Escherichia coli [E. coli] as the cause of diseases classified elsewhere; Z79.4 Long term (current) use of insulin; Z79.899 Other long term (current) drug therapy; Z88.0 Allergy status to penicillin; Z91.09 Other allergy status, other than to drugs and biological substances
CPT/HCPCS: 36415; 36600; 71250; 74150; 76705; 80048; 80053; 81000; 82010; 82805; 82947; 83690; 85007; 85027; 87077; 87088; 87186; 94760; G0378

== ENCOUNTER 2023-01-19 03:23 | Inpatient (IN) | payer MEDICARE, OTHER ==
[~2023-01-19] VITALS: Ht 160 cm; Wt 58.6 kg
[~2023-01-19 03:23] MED LIST changes: +AMAN100T PO; +BIMA2.5D4 OU; +CALC600T91 PO; +FLUC100T10 PO; +INSU100V16 SC; +PANT40TA52 PO; +SUCR1TAB36 PO; +SULF-221 PO
--- NOTE | 2023-01-19 03:57 | ED General ---
General Stated Complaint: HIGH BLOOD SUGAR,400 Source of Information: Patient (PT DOES ANSWER QUESTIONS, BUT WANTS TO TALK FOR HER. ), Old Records, Spouse History of Present Illness Date Seen by Provider: Jan 19, 2023 Time Seen by Provider: 03:43 Initial Comments PT ARRIVES VIA POV FROM HOME WITH , WANTS WHEELCHAIR ON ARRIVAL PT IS INSULIN DEPENDENT DIABETIC--HAS C.G.M. AND INSULIN PUMP--BOTH APPEAR TO BE WORKING NORMALLY BLOOD SUGARS HAVE BEEN HIGH SINCE SUNDAY--300'S-500'S. PT HAS BEEN HAVING ONGOING ISSUES WITH HIP PAIN AND GOT A STEROID SHOT IN HER HIP ON SUNDAY AT DR. STUBBS'S OFFICE. STATES "SHE'S BEEN GOING [place] EVER SINCE THEN" "IT'S BEEN LIKE THIS FOR THE LAST 2-3 DAYS" NO NAUSEA OR VOMITING, BUT HAS HAD DECREASED APPETITE. NOT REALLY EATING OR DRINKING SHE HAS HAD 3-4 EPISODES OF DIARRHEA. NO ABDOMINAL PAIN NO URINARY SYMPTOMS, BUT IS URINATING LESS. . LAST VOIDED JUST PRIOR TO ARRIVAL AROUND 0300 NO FEVER NO RESPIRATORY SYMPTOMS PT WAS ADMITTED 12/26-12/28/22 FOR UTI. SHE HAD BEEN DOING OK UNTIL THIS WEEK. PCP: DR. STUBBS Allergies and Home Medications Allergies Coded Allergies: Penicillins (Unverified Allergy, Intermediate, hives, 03/15/10) acetaminophen (Unverified Adverse Reaction, Unknown, due to glucose monitor, 11/22/21) Patient Home Medication List Home Medication List Reviewed: Yes Amantadine HCl (Amantadine) 100 Mg Tablet, 50 MG PO BID, (Reported) Entered as Reported by: COLBY LLANOS on 12/25/221507 Last Action: Reviewed Bimatoprost (Lumigan) 0.01 % Drops, 1 DROP OU HS, (Reported) Entered as Reported by: COLBY LLANOS on 12/25/22 150 Last Action: Reviewed Calcium Carbonate (Calcium) 600 Mg Calcium (1500 Mg) Tablet, 600 MG PO BID, (Reported) Entered as Reported by: COLBY LLANOS on 12/25/221507 Last Action: Reviewed Insulin Aspart (Novolog) 100 Unit/Ml Susp, UNITS SC UD, (Reported) Entered as Reported by: COLBY LLANOS on 12/25/221507 Last Action: Reviewed Pantoprazole Sodium (Pantoprazole Sodium) 40 Mg Tablet.dr, 40 MG PO BID, (Rep orted) Entered as Reported by: COLBY LLANOS on 01/19/231149 Last Action: Reviewed Sucralfate (Sucralfate) 1 Gram Tablet, 1 GM PO ACHS, (Reported) Entered as Reported by: COLBY LLANOS on 01/19/231149 Last Action: Reviewed Discontinued Medications Fluconazole (Fluconazole) 100 Mg Tablet, 100 MG PO DAILY Discontinued Reason: No Longer Taking Prescribed by: CRISTINE STUBBS on 12/28/22921 Last Action: Discontinued Pantoprazole Sodium (Pantoprazole Sodium) 40 Mg Tablet., 40 MG PO BID Discontinued Reason: No Longer Taking Prescribed by: CRISTINE STUBBS on 12/28/221720 Last Action: Discontinued Sucralfate (Carafate) 1 Gram Tablet, 1 GM PO ACHS Discontinued Reason: No Longer Taking Prescribed by: CRISTINE STUBBS on 12/28/221720 Last Action: Discontinued Sulfamethoxazole/Trimethoprim (Bactrim Ds Tablet) 800 Mg-160 Mg Tablet, 1 EACH PO BID Discontinued Reason: No Longer Taking Prescribed by: CRISTINE STUBBS on 12/28/22921 Last Action: Discontinued Review of Systems Review of Systems Constitutional: see HPI; No diaphoresis, No fever; malaise, weakness EENTM: no symptoms reported Respiratory: no symptoms reported Cardiovascular: no symptoms reported Gastrointestinal: see HPI; No abdominal pain; diarrhea, loss of appetite; No nausea, No vomiting Genitourinary: see HPI, decreased output; No dysuria Musculoskeletal: no symptoms reported Skin: no symptoms reported Psychiatric/Neurological: No Symptoms Reported Hematologic/Lymphatic: No Symptoms Reported Immunological/Allergic: no symptoms reported Past Uzdksep-Iynngb-Oatgyu Hx Patient Social History Tobacco Use?: No Substance use?: No Alcohol Use?: No Past Medical History Surgery/Hospitalization HX: dm-1, parkinsons Surgeries: Yes (EGD ) Currently Using CPAP: No Currently Using BIPAP: No Cardiac: Yes Hypertension Neurological: Yes Parkinson's Disease Reproductive Disorders: No Sexually Transmitted Disease: No HIV/AIDS: No Genitourinary: Yes Bladder Infection Gastrointestinal: Yes (GASTRITIS; EGS 12/28/[address] GOLDSTEIN) Gastroesophageal Reflux, Leyva's Esophagus, Esophagitis, Hiatal Hernia Musculoskeletal: Yes Arthritis Endocrine: Yes Diabetes, Insulin dep HEENT: Yes Glaucoma Loss of Vision: Denies Hearing Impairment: Hard of Hearing Did You Recieve Any Treatments: No Psychosocial: No Integumentary: No Blood Disorders: No Family Medical History Hypertension Physical Exam Vital Signs Vital Signs - First Documented 01/19/23 03:43 Temp 36.5 Pulse 95 Resp 16 B/P (MAP) 109/61 (77) Pulse Ox 98 O2 Delivery Room Air Capillary Refill : Height, Weight, BMI Height: '" Weight: lbs. oz. kg; 19.57 BMI Method:Stated General Appearance: WD/WN, Other (GENERALIZED WEAKNESS. RESTING TREMOR OF HANDS--LEFT > RIGHT--AND LOWER JAW. ) HEENT: PERRL/EOMI, Other (TONGUE IS VERY DRY, WITH GEOGRAPHISM, AND MOST OF TONGUE IS COATED WHITE) Neck: Normal Inspection Respiratory: Normal Breath Sounds, No Accessory Muscle Use, No Respiratory Distress Cardiovascular: Regular Rate, Rhythm (HR 100), No Edema, No JVD, No Murmur, Normal Peripheral Pulses Gastrointestinal: Normal Bowel Sounds, No Organomegaly, No Pulsatile Mass, Non Tender, Soft Back: Normal Inspection, No CVA Tenderness, No Vertebral Tenderness Extremity: Normal Capillary Refill, Normal Inspection, Normal Range of Motion, Non Tender, No Calf Tenderness, No Pedal Edema Neurologic/Psychiatric: Alert, Oriented x3, No Motor/Sensory Deficits, critical care physician assistant II-X II Norm as Tested, Other (RESTING TREMOR NOTED ABOVE. GENERALIZED WEAKNESS AND FLAT AFFECT. SLOW MENTATION, POOR MEMORY. ) Skin: Normal Color, Warm/Dry Focused Exam Lactate Level 01/19/23 06:26: Lactic Acid Level 2.49*H Lactic Acid Level Laboratory Tests Test 01/19/23 03:50 01/19/23 06:26 Lactic Acid Level 4.31 MMOL/L (0.50-2.00) *H 2.49 MMOL/L (0.50-2.00) *H Progress/Results/Core Measures Suspected Sepsis SIRS Temperature: Pulse: Respiratory Rate: Laboratory Tests 01/19/23 03:50: White Blood Count 14.1H Blood Pressure / Mean: 01/19/23 06:26: Lactic Acid Level 2.49*H Laboratory Tests 01/19/23 03:50: Platelet Count 211, Total Bilirubin 0.7 Results/Orders Lab Results Laboratory Tests Test 01/19/23 03:50 01/19/23 04:22 01/19/23 06:26 01/19/23 07:26 Range/Units White Blood Count 14.1 H 4.3-11.0 10^3/uL Red Blood Count 4.64 3.80-5.11 10^6/uL Hemoglobin 13.6 11.5-16.0 g/dL Hematocrit 42 35-52 % Mean Corpuscular Volume 90 80-99 fL Mean Corpuscular Hemoglobin 29 25-34 pg Mean Corpuscular Hemoglobin Concent 33 32-36 g/dL Red Cell Distribution Width 13.4 10.0-14.5 % Platelet Count 211 130-400 10^3/uL Mean Platelet Volume 10.6 9.0-12.2 fL Immature Granulocyte % (Auto) 1 % Neutrophils (%) (Auto) 85 H 42-75 % Lymphocytes (%) (Auto) 9 L 12-44 % Monocytes (%) (Auto) 4 0-12 % Eosinophils (%) (Auto) 0 0-10 % Basophils (%) (Auto) 0 0-10 % Neutrophils # (Auto) 11.9 H 1.8-7.8 10^3/uL Lymphocytes # (Auto) 1.3 1.0-4.0 10^3/uL Monocytes # (Auto) 0.6 0.0-1.0 10^3/uL Eosinophils # (Auto) 0.0 0.0-0.3 10^3/uL Basophils # (Auto) 0.1 0.0-0.1 10^3/uL Immature Granulocyte # (Auto) 0.1 0.0-0.1 10^3/uL Neutrophils % (Manual) 84 % Lymphocytes % (Manual) 10 % Monocytes % (Manual) 2 % Metamyelocytes % 1 % Band Neutrophils 3 % [place] Cells SLIGHT Elliptocytes SLIGHT Venous Blood pH 7.26 L 7.31-7.41 Venous Blood Partial Pressure CO2 54 H 40-52 MMHG Venous Blood HCO3 23 22-28 MMOL/L Sodium Level 135 135-145 MMOL/L Potassium Level 4.5 3.6-5.0 MMOL/L Chloride Level 95 L 98-107 MMOL/L Carbon Dioxide Level 20 L 21-32 MMOL/L Anion Gap 20 H 5-14 MMOL/L Blood Urea Nitrogen 23 H 7-18 MG/DL Creatinine 1.93 H 0.60-1.30 MG/DL Estimat Glomerular Filtration Rate 27 BUN/Creatinine Ratio 12 Glucose Level 663 *H 70-105 MG/DL Lactic Acid Level 4.31 *H 2.49 *H 0.50-2.00 MMOL/L Calcium Level 10.1 8.5-10.1 MG/DL Corrected Calcium 10.0 8.5-10.1 MG/DL Magnesium Level 1.9 1.6-2.4 MG/DL Total Bilirubin 0.7 0.1-1.0 MG/DL Aspartate Amino Transf (AST/SGOT) 20 5-34 U/L Alanine Aminotransferase (ALT/SGPT) 21 0-55 U/L Alkaline Phosphatase 83 40-136 U/L Total Protein 7.3 6.4-8.2 GM/DL Albumin 4.1 3.2-4.5 GM/DL Amylase Level 19 L 25-125 U/L Lipase 14 8-78 U/L Beta-Hydroxybutyrate (Chem panel) 3.48 H 0.00-0.27 MMOL/L Urine Color YELLOW Urine Clarity SL CLOUDY Urine pH 6.0 5-9 Urine Specific [place] 1.010 L 1.016-1.022 Urine Protein NEGATIVE NEGATIVE Urine Glucose (UA) 3+ H NEGATIVE Urine Ketones 1+ H NEGATIVE Urine Nitrite NEGATIVE NEGATIVE Urine Bilirubin NEGATIVE NEGATIVE Urine Urobilinogen 1.0 < = 1.0 MG/DL Urine Leukocyte Esterase TRACE H NEGATIVE Urine RBC (Auto) NEGATIVE NEGATIVE Urine RBC NONE /HPF Urine WBC 25-50 H /HPF Urine Squamous Epithelial Cells >50 H /HPF Urine Crystals NONE /LPF Urine Bacteria MODERATE H /HPF Urine Casts NONE /LPF Urine Hyaline Casts 2-5 H /LPF Urine Mucus SMALL H /LPF Urine Culture Indicated NO Glucometer 574 *H 70-110 MG/DL My Orders Orders - TORY HERNANDEZ DO Accucheck Stat ONCE (01/19/23 03:43) Ed Iv/Invasive Line Start (01/19/23 03:43) Monitor-Rhythm Ecg Trace Only (01/19/23 03:43) Amylase (01/19/23 03:43) Cbc With Automated Diff (01/19/23 03:43) Comprehensive Metabolic Panel (01/19/23 03:43) Lactic Acid Analyzer (01/19/23 03:43) Lipase (01/19/23 03:43) Magnesium (01/19/23 03:43) Ua Culture If Indicated (01/19/23 03:43) Beta Hydroxybutyrate (01/19/23 03:43) Hemoglobin A1c (01/19/23 03:43) Ed Iv/Invasive Line Start (01/19/23 03:55) Ns Iv 1000 Ml (Sodium Chloride 0.9%) (01/19/23 04:00) Venous Blood Gas (01/19/23 03:55) Manual Differential (01/19/23 03:50) [place] Cath (01/19/23 04:16) Insulin (Regular) Human (Novolin R (Per (01/19/23 04:45) Ed Iv/Invasive Line Start (01/19/23 04:31) Ns Iv 1000 Ml (Sodium Chloride 0.9%) (01/19/23 04:45) Ondansetron Injection (Zofran Injectio (01/19/23 05:00) Ceftriaxone Pre-Mix (Rocephin Pre-Mix) (01/19/23 04:49) Ed Admission (Communication) (01/19/23 04:56) Metoclopramide Injection (Reglan Injecti (01/19/23 05:45) Urine Culture (01/19/23 05:38) Medications Given in ED Vital Signs/I&O 01/19/23 03:43 Temp 36.5 Pulse 95 Resp 16 B/P (MAP) 109/61 (77) Pulse Ox 98 O2 Delivery Room Air Capillary Refill : Point of Care Testing Blood Glucose Action Taken: READING "HI". DR. HERNANDEZ NOTIFIED. Progress Note : Progress Note ACCUCHECK READING "HIGH" VITALS ON ADMIT: BP 109/61, HR 100, O2 SAT 98% ON ROOM AIR. TEMP 36.5 GIVEN: -IV FLUIDS -INSULIN -ROCEPHIN -ZOFRAN -REGLAN LABS INCLUDING CBC, CMP, AMYLASE/LIPASE, LACTIC ACID, VENOUS BLOOD GAS, BETAHYDROXY BUTYRATE, HGB A1C, UA ORDERED. 0430--INSULIN PUMP NOW CONTINUOUSLY BEEPING AND PT STATES SHE THINKS THE NEEDLE HAS COME OUT. SHE STATES IT WAS BEEPING SOME AT HOME, BUT IS NOW CONSTANTLY BEEPING. ON CHECKING IT, THE NEEDLE HAS COME COMPLETELY OUT OF HER SKIN AND IS STUCK IN HER GOWN. THIS WAS DISCONNECTED AND THE PUMP SHUT OFF, SHE DOES NOT HAVE ANY NEEDLES WITH HER. 7667--NOW C/O NAUSEA, ZOFRAN ORDERED. 0535--PT IS NOW VOMITING. REGLAN ORDERED BASED ON LAB RESULTS PT IS IN DKA WITH: PH 7.26, PCO2 54, HCO3 23 LACTIC ACID 4.34 GLUCOSE 663 BETA HYDROXYBUTYRATE 3.48 NA 135, K 3.5 BUN 23, CR 1.93 CBC WITH WBC 14.1 NO DETERIORATION IN PT'S CONDITION DURING ER STAY DISCUSSED TEST RESULTS, NEED FOR ADMIT AND PT AGREES TO PLAN REVIEWED PRIOR RECORDS, ADMITS/H&P'S/CONSULTS/DISCHARGE SUMMARIES, TESTS/PROCEDURES PT HAD 2 ADMITS IN 2009 FOR UTI/INTRACTABLE N-V, AND ADMIT IN DECEMBER OF THIS YEAR. NO OTHER VISITS HERE. Departure Communication (Admissions) 4040--SPOKE WITH DR. WILEY, HOSPITALIST FOR DR. STUBBS, ACCEPTS PT FOR ADMIT. SHE WILL DO ADMIT ORDERS. WILL HAVE TO HOLD PT IN ER UNTIL AFTER 0700 FOR ICU BED. Impression Primary Impression: DKA (diabetic ketoacidosis) Additional Impressions: Dehydration Lactic acidosis due to diabetes mellitus Parkinson's disease INSULIN PUMP DISPLACED NEEDLE UTI (urinary tract infection) Nausea & vomiting Acute kidney injury Disposition: ADMITTED INPATIENT Condition: Stable Admissions Decision to Admit Reason: Admit from ER (General) Decision to Admit/Date: Jan 19, 2023 Time/Decision to Admit Time: 04:40 Departure-Patient Inst. Referrals: CRISTINE STUBBS MD (PCP/Family) Primary Care Physician TORY HERNANDEZ DO Jan 19, 2023 03:56
[2023-01-19] MEDS ORDERED: NS IV 1000 ML 1,000 ML IV SCH ×3 (04:00→08:15)
[2023-01-19 04:02] LABS: BASOPHILS # (AUTO) 0.1 10^3/uL (0.0-0.1); BASOPHILS % (AUTO) 0 % (0-10); EOSINOPHILS % (AUTO) 0 % (0-10); HEMATOCRIT 42 % (35-52); HEMOGLOBIN 13.6 g/dL (11.5-16.0); LYMPHOCYTES # (AUTO) 1.3 10^3/uL (1.0-4.0); LYMPHOCYTES % (AUTO) 9 % (12-44); MEAN CORPUSCULAR HEMOGLOBIN 29 pg (25-34); MEAN CORPUSCULAR HGB CONC 33 g/dL (32-36); MEAN CORPUSCULAR VOLUME 90 fL (80-99); MEAN PLATELET VOLUME 10.6 fL (9.0-12.2); MONOCYTES # (AUTO) 0.6 10^3/uL (0.0-1.0); MONOCYTES % (AUTO) 4 % (0-12); NEUTROPHILS # (AUTO) 11.9 10^3/uL (1.8-7.8); NEUTROPHILS % (AUTO) 85 % (42-75); PLATELET COUNT 211 10^3/uL (130-400); WHITE BLOOD COUNT 14.1 10^3/uL (4.3-11.0)
[2023-01-19 04:21] LABS: ALBUMIN 4.1 GM/DL (3.2-4.5)
[2023-01-19 04:22] LABS: POTASSIUM 4.5 MMOL/L (3.6-5.0)
[2023-01-19 04:23] LABS: CALCIUM 10.1 MG/DL (8.5-10.1)
[2023-01-19 04:24] LABS: TOTAL PROTEIN 7.3 GM/DL (6.4-8.2)
[2023-01-19 04:26] LABS: BILIRUBIN,TOTAL 0.7 MG/DL (0.1-1.0)
[2023-01-19 04:28] LABS: CREATININE SERUM 1.93 MG/DL (0.60-1.30)
[2023-01-19 04:30] LABS: MAGNESIUM 1.9 MG/DL (1.6-2.4)
[2023-01-19 04:35] LABS: BILIRUBIN,URINE NEGATIVE (NEGATIVE); CLARITY,URINE SL CLOUDY; COLOR,URINE YELLOW; GLUCOSE, URINE (UA) 3+ (NEGATIVE); KETONES,URINE 1+ (NEGATIVE); LEUKOCYTE ESTERASE ,URINE TRACE (NEGATIVE); NITRITE,URINE NEGATIVE (NEGATIVE); PROTEIN,URINE NEGATIVE (NEGATIVE)
[2023-01-19 04:40] LABS: BAND NEUTROPHILS 3 %; BURR CELLS SLIGHT; ELLIPT/OVALOCYTES SLIGHT; LYMPHOCYTES % (MANUAL) 10 %; METAMYELOCYTES % 1 %; MONOCYTES % (MANUAL) 2 %; NEUTROPHILS % (MANUAL) 84 %
[2023-01-19] MEDS ORDERED: inSUlin (REGULAR) HUMAN 1 UNIT/0.01 ML (CHARGE PER UNIT) IV ONE (04:45)
[2023-01-19 04:48] LABS: BACTERIA,URINE MODERATE /HPF; SQUAMOUS EPITHELIAL CELL,UR >50 /HPF; WBC,URINE 25-50 /HPF
[2023-01-19] MEDS ORDERED: cefTRIAXone PRE-MIX 50 ML IV STA (04:49)
[2023-01-19] MEDS ORDERED: ONDANSETRON 4 MG/2 ML (SDV) Z0FRAN IVP ONE (05:00)
--- NOTE | 2023-01-19 05:19 | History & Physical ---
History of Present Illness HPI/Chief Complaint CC: DKA HPI: This is a 72yoWF clinic patient of Dr Cary who has a h/o diabetes on insulin pump and Parkinson's disease who presented to the ER with AMS and sugar too high to read and found to have DKA. Apparently she received a steroid injection in her left hip earlier in the week at PCP office and also when she w as assessed in the ER her insulin pump was not connected to her abdominal wall. Currently she is feeling better but still very weak. She lives at home with her . She has never had DKA before she reported. Source: patient Exam Limitations: no limitations Date Seen 01/19/23 Time Seen by a Provider: 10:00 Attending Physician Shelly Cary MD PCP Admitting Physician: Attending Physician: Referring Physician Date of Admission Home Medications & Allergies Home Medications Reviewed patient Home Medication Reconciliation performed by pharmacy medication reconciliations therapeutic massage technician and/or nursing. Patients Allergies have been reviewed. Allergies Allergies Coded Allergies Penicillins (Unverified Allergy, Intermediate, hives, 03/15/10) acetaminophen (Unverified Adverse Reaction, Unknown, due to glucose monitor, 11/22/21) Past Dolyxkd-Wmxinu-Doydoh Hx Past Med/Social Hx: Reviewed Nursing Past Med/Soc Hx, Reviewed and Corrections made Patient Social History Marrital Status: Employed/Student: retired Alcohol Use: Denies Use Smoking Status: Never a Smoker Immunizations Up To Date Date of Pneumonia Vaccine: May 20, 2012 Past Medical History Currently Using CPAP: No Currently Using BIPAP: No Cardiac: Hypertension Neurological: Parkinson's Disease Reproductive: No Sexually Transmitted Disease: No HIV/AIDS: No Genitourinary: Bladder Infection Musculoskeletal: Arthritis Endocrine: Diabetes, Insulin dep HEENT: Glaucoma Loss of Vision: Denies Hearing Impairment: Hard of Hearing Did You Recieve Any Treatments: No History of Blood Disorders: No Family History Hypertension Review of Systems Constitutional: see HPI, dizziness, malaise, weakness EENTM: no symptoms reported Respiratory: no symptoms reported Cardiovascular: no symptoms reported Gastrointestinal: no symptoms reported, nausea, vomiting Genitourinary: no symptoms reported Musculoskeletal: no symptoms reported Skin: no symptoms reported Psychiatric/Neurological: No Symptoms Reported All Other Systems Reviewed Negative Unless Noted: Yes Physical Exam Physical Exam Vital Signs Vital Signs - First Documented 01/19/23 01/19/23 03:43 10:08 Temp 36.5 Pulse 95 Resp 16 B/P (MAP) 109/61 (77) Pulse Ox 98 O2 Delivery Room Air FiO2 21 Capillary Refill : Less Than 3 Seconds Height, Weight, BMI Height: '" Weight: lbs. oz. kg; 19.57 BMI Method:Stated General Appearance: WD/WN, Mild Distress, Other (GENERALIZED WEAKNESS. RESTING TREMOR OF HANDS--LEFT > RIGHT--AND LOWER JAW. ) HEENT: PERRL/EOMI, Other (TONGUE IS VERY DRY, WITH GEOGRAPHISM, AND MOST OF TONGUE IS COATED WHITE) Neck: Normal Inspection Respiratory: Normal Breath Sounds, No Accessory Muscle Use, No Respiratory Distress Cardiovascular: Regular Rate, Rhythm (HR 100), No Edema, No JVD, No Murmur, Normal Peripheral Pulses Gastrointestinal: Normal Bowel Sounds, No Organomegaly, No Pulsatile Mass, Non Tender, Soft Back: Normal Inspection, No CVA Tenderness, No Vertebral Tenderness Extremity: Normal Capillary Refill, Normal Inspection, Normal Range of Motion, Non Tender, No Calf Tenderness, No Pedal Edema Neurologic/Psychiatric: Alert, Oriented x3, No Motor/Sensory Deficits, bleacher operator II- XII Norm as Tested, Other (RESTING TREMOR NOTED ABOVE. GENERALIZED WEAKNESS AND FLAT AFFECT. SLOW MENTATION, POOR MEMORY. ) Skin: Normal Color, Warm/Dry Results Results/Procedures Labs Laboratory Tests 01/19/23 03:50 01/19/23 08:25 01/19/23 10:20 01/19/23 16:19 Patient resulted labs reviewed. Assessment/Plan Admission Diagnosis Assessment: DKA Parkinson's Dehydration HTN KAILYN Acute UTI Plan: Insulin drip IVF Abx Admission Status: Inpatient Order (span 2 midnights) Reason for Inpatient Admission: NILE Renner DO Jan 19, 2023 05:19
[2023-01-19] MEDS ORDERED: METOCLOPRAMIDE INJ 10 MG/2 ML (REGLAN) IVP ONE (05:45)
[2023-01-19] MEDS ORDERED: LACTATED RINGERS 1,000 ML IV STA (07:07)
[2023-01-19] MEDS ORDERED: cefTRIAXone IV/IM 1,000 MG in NS (IVPB) 50 ML IV SCH (08:15)
[2023-01-19] MEDS ORDERED: diphenhydrAMINE 50 MG/ML INJ (BENADRYL) IVP PRN (08:15)
[2023-01-19] MEDS ORDERED: BISACODYL 10 MG SUPP (DULCOLAX) PR PRN (08:15)
[2023-01-19] MEDS ORDERED: NS IV 500 ML 500 ML IV PRN (08:15)
[2023-01-19] MEDS ORDERED: polyethylene glycoL POWDER 17 GM (MIRALAX) PACK PO PRN (08:15)
[2023-01-19] MEDS ORDERED: ONDANSETRON 4 MG (ZOFRAN) ORAL DISSOLVE TAB PO PRN (08:15)
[2023-01-19] MEDS ORDERED: MELATONIN 3 MG TABLET PO PRN (08:15)
[2023-01-19] MEDS ORDERED: LORazepam 0.5 MG (ATIVAN) TABLET PO PRN (08:15)
[2023-01-19] MEDS: POTASSIUM CL 10MEQ/50ML IVPB 50 ML IV SCH ×10 (08:15→22:13)
[2023-01-19] MEDS ORDERED: LACTULOSE SYRUP 10GM/15ML (ENULOSE) 30ML UDC PO PRN (08:15)
[2023-01-19] MEDS ORDERED: IBUPROFEN TABLET 200 MG TAB PO PRN (08:15)
[2023-01-19] MEDS ORDERED: ANTACID SUSP 30 ML UDC (MYLANTA) PO PRN (08:15)
[2023-01-19] MEDS ORDERED: diphenhydrAMINE 25 MG TAB (BENADRYL) PO PRN (08:15)
[2023-01-19] MEDS ORDERED: CALCIUM CARBONATE 500 MG (TUMS) TAB.CHEW PO PRN (08:15)
[2023-01-19] MEDS ORDERED: ONDANSETRON 4 MG/2 ML (SDV) Z0FRAN IV PRN (08:15)
[2023-01-19] MEDS ORDERED: MILK OF MAGNESIA 400 MG/5 ML 30 ML UDC PO PRN (08:15)
[2023-01-19] MEDS ORDERED: LORazepam INJ 2 MG/ML (ATIVAN) VIAL IVP PRN (08:15)
[2023-01-19 08:45] LABS: POTASSIUM 5.2 MMOL/L (3.6-5.0)
[2023-01-19 08:46] LABS: CALCIUM 8.7 MG/DL (8.5-10.1)
[2023-01-19] MEDS: 1/2 NS IV SOLUTION 1,000 ML IV SCH ×3 (08:47→20:47)
[2023-01-19 08:50] LABS: CREATININE SERUM 1.6 MG/DL (0.60-1.30)
[2023-01-19] MEDS: DOCUSATE SODIUM 100 MG (COLACE) CAP PO SCH ×2 (09:00→20:43)
[2023-01-19] MEDS: SENNOSIDES 8.6 MG (SENOKOT) TAB PO SCH ×2 (09:00→20:43)
[2023-01-19 10:08] VITALS: BP 100/51
--- NOTE | 2023-01-19 10:12 | Tele-ICU Progress Note ---
Subjective Date Seen by a Provider: Jan 19, 2023 Subjective/Events-last exam This virtual visit was conducted using real time audio/video. Thank you for asking us to see this patient for critical Care services due to DKA, nausea, vomiting and UTI PE: Appears comfortble. VSS. O2 sat 98% on RA. HEENT: No obvious masses, adenopathy or JVD. Chest: clear to auscultation. CV: RRR S1 S2 No murmur or added sounds. Abd: Non-tender. Bowel sounds Y. : Unremarkable. 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 No obvious focal findings. Extremities: No edema. Capillary refill < 3 seconds. Skin: unremarkable. Results: Elevated BG 469, improving. Available chart/ vitals / labs / images reviewed. Video assessment done using teleICU camera, rest of exam as per RN. A/P: . Critical Care: critically ill patient. Cont. IV ins., abx, reglan, zofran, abx. Discussed with RN DELMI. Asked RN to reach out to eICU if any questions or concerns later. Time spent with patient/coordination of care with other health professionals (mins): 22 Sepsis Event Evaluation Height, Weight, BMI Height: '" Weight: lbs. oz. kg; 19.57 BMI Method:Stated Focused Exam Lactate Level 01/19/23 03:50: Lactic Acid Level 4.31*H 01/19/23 06:26: Lactic Acid Level 2.49*H 01/19/23 08:25: Lactic Acid Level 2.71*H Lactic Acid Level Laboratory Tests Test 01/19/23 06:26 01/19/23 08:25 Lactic Acid Level 2.49 MMOL/L (0.50-2.00) *H 2.71 MMOL/L (0.50-2.00) *H Exam Exam Patient acknowledged, consented, and participated in this virtual visit which was conducted using real time audio/video Vital Signs Date Time Temp Pulse Resp B/P (MAP) Pulse Ox O2 Delivery O2 Flow Rate FiO2 01/19/23 10:08 36.7 113 96 21 01/19/23 10:00 113 100/51 (67) 96 Room Air 01/19/23 09:00 117 98/47 (64) 98 Room Air 01/19/23 08:03 118 01/19/23 08:03 118 01/19/23 08:00 120 82/45 (57) 100 Room Air 01/19/23 07:45 36.7 116 18 107/48 98 Room Air 01/19/23 03:43 36.5 95 16 109/61 (77) 98 Room Air I & O 01/19/23 07:00 Intake Total 1050 ml Balance 1050 ml Height & Weight Height: '" Weight: lbs. oz. kg; 19.57 BMI Method:Stated General Appearance: WD/WN, Other (GENERALIZED WEAKNESS. RESTING TREMOR OF HANDS--LEFT > RIGHT--AND LOWER JAW. ) HEENT: PERRL/EOMI, Other (TONGUE IS VERY DRY, WITH GEOGRAPHISM, AND MOST OF TONGUE IS COATED WHITE) Neck: Normal Inspection Respiratory: Normal Breath Sounds, No Accessory Muscle Use, No Respiratory Distress Cardiovascular: Regular Rate, Rhythm (HR 100), No Edema, No JVD, No Murmur, Normal Peripheral Pulses Capillary Refill: Less Than 3 Seconds Extremity: Normal Capillary Refill, Normal Inspection, Normal Range of Motion, Non Tender, No Calf Tenderness, No Pedal Edema Neurologic/Psychiatric: Alert, Oriented x3, No Motor/Sensory Deficits, clinical research director II- XII Norm as Tested, Other (RESTING TREMOR NOTED ABOVE. GENERALIZED WEAKNESS AND FLAT AFFECT. SLOW MENTATION, POOR MEMORY. ) Skin: Normal Color, Warm/Dry Results Lab Laboratory Tests 01/19/23 03:50 01/19/23 08:25 Assessment/Plan Assessment/Plan See free text Critical Care: Critically Ill Patient DARRIN MAY MD Jan 19, 2023 10:12
[2023-01-19] MEDS ORDERED: RT-ALBUTEROL SULF 2.5 MG/3 ML PRE-MIX VIAL INH PRN (10:15)
[2023-01-19 10:36] LABS: POTASSIUM 4.7 MMOL/L (3.6-5.0)
[2023-01-19 10:37] LABS: CALCIUM 8.7 MG/DL (8.5-10.1)
[2023-01-19 10:42] LABS: CREATININE SERUM 1.66 MG/DL (0.60-1.30)
[2023-01-19] MEDS ORDERED: SUCR1TAB PO ×2 (11:50)
[2023-01-19] MEDS ORDERED: PANT40TA52 PO ×2 (11:50)
[2023-01-19 16:49] LABS: CALCIUM 8.4 MG/DL (8.5-10.1); CREATININE SERUM 1.45 MG/DL (0.60-1.30); POTASSIUM 4.1 MMOL/L (3.6-5.0)
[2023-01-19] MEDS: HYDROmorphone 2 MG/ML VIAL (DILAUDID) IV PRN (17:56)
[2023-01-19] MEDS: NS IV 1000 ML 1,000 ML IV SCH (18:35)
--- NOTE | 2023-01-19 18:43 | Progress Note ---
Standard Progress Note Progress Notes/Assess & Plan Date Seen by a Provider: Jan 19, 2023 Time Seen by a Provider: 18:42 Progress/Assessment & Plan called foe hypotension after Dilaudid, will give 500 mL normal saline bolus BP went from 110/59 to 80/43 HERIBERTO SKINNER MD Jan 19, 2023 18:43
[2023-01-19] MEDS ORDERED: NS IV 500 ML 500 ML IV SCH (19:45)
[2023-01-19] MEDS: D5 1/2 NS 1000 ML IV SOLUTION 1,000 ML IV SCH (20:56)
[2023-01-20] MEDS: 1/2 NS IV SOLUTION 1,000 ML IV SCH ×2 (00:17→04:22)
[2023-01-20 00:34] LABS: POTASSIUM 3.9 MMOL/L (3.6-5.0)
[2023-01-20 00:35] LABS: CALCIUM 8.2 MG/DL (8.5-10.1)
[2023-01-20 00:39] LABS: CREATININE SERUM 1.24 MG/DL (0.60-1.30)
[2023-01-20] MEDS: POTASSIUM CL 10MEQ/50ML IVPB 50 ML IV SCH ×5 (00:44→11:02)
[2023-01-20] MEDS: HYDROmorphone 2 MG/ML VIAL (DILAUDID) IV PRN (00:52)
[2023-01-20] MEDS: D5 1/2 NS 1000 ML IV SOLUTION 1,000 ML IV SCH ×3 (01:05→08:31)
[2023-01-20] MEDS: cefTRIAXone IV/IM 1,000 MG in NS (IVPB) 50 ML IV SCH (04:43)
[2023-01-20] MEDS: NS IV 1000 ML 1,000 ML IV SCH (04:56)
[2023-01-20 05:07] LABS: EOSINOPHILS % (AUTO) 0 % (0-10); HEMOGLOBIN 10.2 g/dL (11.5-16.0); MONOCYTES % (AUTO) 7 % (0-12)
[2023-01-20 05:09] LABS: BASOPHILS % (AUTO) 0 % (0-10); HEMATOCRIT 31 % (35-52); LYMPHOCYTES # (AUTO) 1.5 10^3/uL (1.0-4.0); LYMPHOCYTES % (AUTO) 15 % (12-44); MEAN CORPUSCULAR HEMOGLOBIN 29 pg (25-34); MEAN CORPUSCULAR HGB CONC 33 g/dL (32-36); MEAN CORPUSCULAR VOLUME 88 fL (80-99); MEAN PLATELET VOLUME 10.1 fL (9.0-12.2); MONOCYTES # (AUTO) 0.7 10^3/uL (0.0-1.0); NEUTROPHILS # (AUTO) 7.5 10^3/uL (1.8-7.8); NEUTROPHILS % (AUTO) 77 % (42-75); PLATELET COUNT 128 10^3/uL (130-400); WHITE BLOOD COUNT 9.7 10^3/uL (4.3-11.0)
[2023-01-20 05:19] LABS: ALBUMIN 2.7 GM/DL (3.2-4.5)
[2023-01-20 05:21] LABS: CALCIUM 8.1 MG/DL (8.5-10.1)
[2023-01-20 05:22] LABS: TOTAL PROTEIN 4.8 GM/DL (6.4-8.2)
[2023-01-20 05:24] LABS: BILIRUBIN,TOTAL 0.3 MG/DL (0.1-1.0)
[2023-01-20 05:25] LABS: CREATININE SERUM 1.09 MG/DL (0.60-1.30); PHOSPHORUS 1.9 MG/DL (2.3-4.7)
[2023-01-20 05:28] LABS: MAGNESIUM 1.2 MG/DL (1.6-2.4)
[2023-01-20] MEDS: MAGNESIUM 1 GM/100 ML IVPB 100 ML IV SCH ×5 (05:54→11:02)
[2023-01-20] MEDS ORDERED: MAGNESIUM 1 GM/100 ML IVPB 100 ML IV SCH (06:00)
[2023-01-20] MEDS ORDERED: KCL 20 MEQ TAB (K-DUR) PO SCH (06:00)
[2023-01-20] MEDS ORDERED: POTASSIUM CL 10MEQ/50ML IVPB 50 ML IV SCH (06:00)
--- NOTE | 2023-01-20 06:30 | Progress Note ---
Subjective Date Seen by a Provider: Jan 20, 2023 Time Seen by a Provider: 11:00 Subjective/Events-last exam Patient doing much better We will move down to fourth floor Bicarb is normal Blood sugars are improved We will switch to subcu insulin Daughter at the bedside Very weak Parkinson's is severe Home meds will be restarted Review of Systems General: Fatigue, Malaise Focused Exam Lactate Level 01/19/23 06:26: Lactic Acid Level 2.49*H 01/19/23 08:25: Lactic Acid Level 2.71*H 01/19/23 10:20: Lactic Acid Level 3.06*H Objective Exam Last Set of Vital Signs Vital Signs Date Time Temp Pulse Resp B/P (MAP) Pulse Ox O2 Delivery O2 Flow Rate FiO2 01/20/23 06:00 84 114/61 (78) 96 Room Air 01/20/23 04:00 18 01/20/23 03:00 36.7 01/19/23 10:08 21 Capillary Refill : Less Than 3 Seconds I&O Intake and Output 01/20/23 00:00 Intake Total 6175 ml Output Total 1200 ml Balance 4975 ml Intake Oral 1375 ml IV Total 4800 ml Output Urine Total 1200 ml Daily Weight Change No General: Alert, Oriented X3, Cooperative, No Acute Distress Lungs: Clear to Auscultation, Normal Air Movement Heart: Regular Rate, Normal S1, Normal S2, No Murmurs Psych/Mental Status: Mental Status NL, Mood NL Results Lab Laboratory Tests 01/19/23 07:26: Glucometer 574*H 01/19/23 08:25: Sodium Level 137, Potassium Level 5.2H, Chloride Level 102, Carbon Dioxide Level 17L, Anion Gap 18H, Blood Urea Nitrogen 25H, Creatinine 1.60H, Estimat Glomerular Filtration Rate 34, BUN/Creatinine Ratio 16, Glucose Level 598*H, Lactic Acid Level 2.71*H, Calcium Level 8.7, Beta-Hydroxybutyrate (Chem panel) 5.83H 01/19/23 08:55: Glucometer 522*H 01/19/23 10:01: Glucometer 469*H 01/19/23 10:20: Sodium Level 137, Potassium Level 4.7, Chloride Level 103, Carbon Dioxide Level 14L, Anion Gap 20H, Blood Urea Nitrogen 26H, Creatinine 1.66H, Estimat Glomerular Filtration Rate 33, BUN/Creatinine Ratio 16, Glucose Level 526*H, Lactic Acid Level 3.06*H, Calcium Level 8.7 01/19/23 11:02: Glucometer 407*H 01/19/23 11:57: Glucometer 351H 01/19/23 13:02: Glucometer 295H 01/19/23 14:16: Glucometer 244H 01/19/23 15:06: Glucometer 224H 01/19/23 15:52: Glucometer 181H 01/19/23 16:19: Sodium Level 136, Potassium Level 4.1, Chloride Level 106, Carbon Dioxide Level 21, Anion Gap 9, Blood Urea Nitrogen 24H, Creatinine 1.45H, Estimat Glomerular Filtration Rate 39, BUN/Creatinine Ratio 17, Glucose Level 192H, Calcium Level 8.4L 01/19/23 16:56: Glucometer 180H 01/19/23 18:06: Glucometer 200H 01/19/23 19:00: Glucometer 175H 01/19/23 19:58: Glucometer 146H 01/19/23 20:53: Glucometer 134H 01/19/23 21:55: Glucometer 133H 01/19/23 22:59: Glucometer 112H 01/19/23 23:52: Glucometer 115H 01/20/23 00:17: Sodium Level 136, Potassium Level 3.9, Chloride Level 109H, Carbon Dioxide Level 21, Anion Gap 6, Blood Urea Nitrogen 18, Creatinine 1.24, Estimat Glomerular Filtration Rate 47, BUN/Creatinine Ratio 15, Glucose Level 117H, Calcium Level 8.2L 01/20/23 01:00: Glucometer 109 01/20/23 01:58: Glucometer 116H 01/20/23 02:55: Glucometer 119H 01/20/23 04:19: Glucometer 133H 01/20/23 04:57: Glucometer 136H 01/20/23 04:58: White Blood Count 9.7, Red Blood Count 3.48L, Hemoglobin 10.2#L, Hematocrit 31L, Mean Corpuscular Volume 88, Mean Corpuscular Hemoglobin 29, Mean Corpuscular Hemoglobin Concent 33, Red Cell Distribution Width 13.8, Platelet Count 128L, Mean Platelet Volume 10.1, Immature Granulocyte % (Auto) 0, Neutrophils (%) (Auto) 77H, Lymphocytes (%) (Auto) 15, Monocytes (%) (Auto) 7, Eosinophils (%) (Auto) 0, Basophils (%) (Auto) 0, Neutrophils # (Auto) 7.5, Lymphocytes # (Auto) 1.5, Monocytes # (Auto) 0.7, Eosinophils # (Auto) 0.0, Basophils # (Auto) 0.0, Immature Granulocyte # (Auto) 0.0, Percent Immature Platelet Fraction 2.1, Sodium Level 133L, Potassium Level 4.0, Chloride Level 109H, Carbon Dioxide Level 20L, Anion Gap 4L, Blood Urea Nitrogen 15, Creatinine 1.09, Estimat Glomerular Filtration Rate 54, BUN/Creatinine Ratio 14, Glucose Level 139H, C alcium Level 8.1L, Corrected Calcium 9.1, Phosphorus Level 1.9L, Magnesium Level 1.2L, Total Bilirubin 0.3, Aspartate Amino Transf (AST/SGOT) 16, Alanine Aminotransferase (ALT/SGPT) 13, Alkaline Phosphatase 51, Total Protein 4.8L, Albumin 2.7L, Beta-Hydroxybutyrate (Chem panel) 0.08 Assessment/Plan Assessment/Plan Assess & Plan/Chief Complaint Assessment: DKA Parkinson's Dehydration HTN KAILYN Acute UTI Plan: Insulin drip IVF Abx Move to 4th floor NILE WILEY 3, 2023 06:30
[2023-01-20 08:24] LABS: CALCIUM 8.2 MG/DL (8.5-10.1)
[2023-01-20 08:29] LABS: CREATININE SERUM 1.05 MG/DL (0.60-1.30)
--- NOTE | 2023-01-20 08:50 | Diagnostic Imaging Report ---
INDICATION: Diabetic ketoacidosis. TECHNIQUE: Single view chest at 5:25 AM. CORRELATION STUDY: None FINDINGS: The heart size and mediastinum are upper limits of normal. There is mild prominence in the region of the azygos vein suggesting mild fluid overload. No significant consolidating infiltrate. IMPRESSION: There appears to be borderline edema. Dictated by: Dictated on workstation # [id number]
[2023-01-20] MEDS: DOCUSATE SODIUM 100 MG (COLACE) CAP PO SCH ×2 (09:20→19:34)
[2023-01-20] MEDS: SENNOSIDES 8.6 MG (SENOKOT) TAB PO SCH ×2 (09:20→19:35)
[2023-01-20] MEDS ORDERED: 1/2 NS IV SOLUTION 1,000 ML IV SCH ×2 (11:00→16:30)
--- NOTE | 2023-01-20 14:43 | Physical Therapy Evaluation ---
PT Evaluation-General Medical Diagnosis Admission Date Jan 19, 2023 at 07:44 Medical Diagnosis: DKA Onset Date: Jan 19, 2023 Therapy Diagnosis Therapy Diagnosis: debility Precautions Precautions/Isolations: Fall Prevention, Standard Precautions Weight Bear Status Right Lower Extremity: Right Full Weight Bearing Left Lower Extremity: Left Full Weight Bearing Referral Physician: Mari Reason for Referral: Evaluation/Treatment Medical History Pertinent Medical History: Arthritis, DM, Parkinson's Current History Pt presented to ER with AMS, elevated blood glucose and DKA Reviewed History: Yes Social History Home: Multilevel Current Living Status: Spouse Entry Into Home: Stairs With Railing PT Steps Into Home: 4 PT Steps Inside Home: 12 Prior Prior Level of Function SCALE: Activities may be completed with or without assistive devices. 3-Oseuijekno-zhmfbxu completes the activity by him/herself with no assistance from a helper. 5-Set-up or Clean-up Assistance-helper sets up or cleans up; patient completes activity. [place] assists only prior to or following the activity. 4-Supervision or Touching Assistance-helper provides verbal cues and/or touching/steadying and/or contact guard assistance as patient completes activity. Assistance may be provided throughout the activity or intermittently. 3-Partial/Moderate Assistance-helper does LESS THAN HALF the effort. [place] lifts, holds or supports trunk or limbs, but provides less than half the effort. 2-Substantial/Maximal Assistance-helper does MORE THAN HALF the effort. [place] lifts or holds trunk or limbs and provides more than half the effort. 1-Wtsyytxij-nlqgfg does ALL the effort. Patient does none of the effort to complete the activity. Or, the assistance of 2 or more helpers is required for the patient to complete the activity. If activity was not attempted, code reason: 7-Patient Refused. 9-Not Applicable-not attempted and the patient did not perform the activity before the current illness, exacerbation or injury. 10-Not Attempted due to Environmental Limitations-(lack of equipment, weather restraints, etc.). 88-Not Attempted due to Medical Conditions or Safety Concerns. Bed Mobility: 6 Transfers (B,C,W/C): 6 Gait: 6 Stairs: 6 Wheelchair Mobility: 9 Indoor Mobility (Ambulation): Independent Stairs: Independent Prior Devices Use: None PT Evaluation-Current Subjective Pt in bed, initially agreeable to up to chair. After moving to EOB Pt declined OOB and requested to return to supine due to feeling lightheaded. Nursing notified of c/o. Pain Numeric Pain Scale: 0-No Pain Location: No Pain Reported Objective Patient Orientation: Person, Place, Time, Situation Attachments: Aiken Catheter, IV ROM/Strength ROM Upper Extremities WFL for mobility ROM Lower Extremities WFL for mobility Strength Upper Extremities WFL for mobility Strength Lower Extremities Grossly 3+/5 Integumentary/Posture Integumentary See nurses' notes Bowel Incontinence: No Bladder Incontinence: Aiken Cath Posture kyphotic Sensory Vision: Functional Hearing: Impaired Transfers Sit to Lying (QC): 3 Lying to Sitting/Side of Bed(Q: 4 Pt declined OOB this date due to feeling lightheaded. Max a x 1 for up in bed. Gait Does the Patient Walk?: No and Walking Goal IS indicated Mode of Locomotion: Walk Anticipated Mode of Locomotion: Walk Comments/Gait Description Pt declined OOB this date. Wheelchair Training Does the Pt Use a Wheelchair?: No Type of Wheelchair: N/A Balance Sitting Static: Good Sitting Dynamic: Fair Treatment Eval. Returned to bed with all needs met. Nursing notified of Pt's c/o lightheadedness and return to bed. Assessment/Needs Pt would benefit from skilled PT to address functional weakness and restore (I) functional mobility for safe return home with spouse. Rehab Potential: Good PT Short Term Goals Short Term Goals Time Frame: Jan 24, 2023 Roll Left & Right: 6 Sit to lyin Lying to sitting on side of be: 6 PT Yarding And Folding Machine Operator Goals Mcc Goals PT Yarding And Folding Machine Operator Goals Time Frame: Jan 27, 2023 Roll Left & Right (QC): 6 Sit to Lying (QC): 6 Lying-Sitting on Side/Bed(QC): 6 Sit to Stand (QC): 6 Chair/Ujf-tc-Spqgd Xfer(QC): 6 Toilet Transfer (QC): 6 Car Transfer (QC): 6 Does the Patient Walk: No and Walking Goal IS indicated Walk 10 feet (QC): 6 Walk 50ft with 2 Turns (QC): 6 Walk 150 ft (QC): 6 Walking 10ft on Uneven Surface: 6 1 Step (curb) (QC): 5 4 Steps (QC): 5 12 Steps (QC): 5 Does the Pt use WC or Scooter?: No Type: N/A Type: N/A PT goals established to allow safe return home (I) PT Plan Problem List Problem List: Activity Tolerance, Functional Strength, Safety, Balance, Gait, Transfer, Bed Mobility Treatment/Plan Treatment Plan: Continue Plan of Care Treatment Plan: Bed Mobility, Education, Functional Activity Rachel, Functional Strength, Gait, Safety, Therapeutic Exercise, Transfers Treatment Duration: Jan 27, 2023 Frequency: 6 times per week Estimated Hrs Per Day: .25 hour per day Patient and/or Family Agrees t: Yes Safety Risks/Education Teaching Recipient: Patient Teaching Methods: Discussion Response to Teaching: Verbalize Understanding PT POC Discharge Recommendations Plan Continue to assess mobility needs Time Time In: 1345 Time Out: 1403 DATE: Jan 20, 2023 Total Billed Treatment Time: 18 Total Billed Treatment 1, PETEY RUIZ DPYuliya Jan 20, 2023 14:43
[2023-01-20] MEDS: inSUlin ASPART (NovoLOG) 1 UNIT/0.01 ML (CHARGE PER UNIT) SC SCH ×2 (15:10→19:26)
[2023-01-20] MEDS: SUCRALFATE 1 GM (CARAFATE) TAB PO SCH ×2 (17:05→19:26)
[2023-01-20 19:21] VITALS: BP 141/66
[2023-01-20] MEDS: PANTOPRAZOLE 40 MG (PROTONIX) TAB PO SCH (19:25)
[2023-01-20] MEDS: CALCIUM CARBONATE 600 MG (CALCARB) TAB PO SCH (19:25)
[2023-01-20] MEDS: LATANOPROST 0.005% (XALATAN) OPHTH SOLN 2.5 ML OU SCH (19:26)
[2023-01-20] MEDS ORDERED: D5 1/2 NS W/KCL 10 MEQ/L 1,000 ML IV SCH (20:30)
[2023-01-20] MEDS: AMANTADINE 10 MG/ML SYRUP (SYMMETREL) CHARGE PER ML PO SCH (21:22)
[2023-01-20 23:44] VITALS: BP 127/70
[2023-01-21 03:24] VITALS: BP 153/73
[2023-01-21] MEDS: cefTRIAXone IV/IM 1,000 MG in NS (IVPB) 50 ML IV SCH (04:50)
[2023-01-21] MEDS: SUCRALFATE 1 GM (CARAFATE) TAB PO SCH ×4 (04:51→19:39)
[2023-01-21] MEDS: inSUlin ASPART (NovoLOG) 1 UNIT/0.01 ML (CHARGE PER UNIT) SC SCH ×4 (05:23→21:09)
[2023-01-21 05:44] LABS: BASOPHILS % (AUTO) 0 % (0-10); EOSINOPHILS # (AUTO) 0.1 10^3/uL (0.0-0.3); HEMOGLOBIN 11.9 g/dL (11.5-16.0); MONOCYTES # (AUTO) 0.3 10^3/uL (0.0-1.0)
[2023-01-21 05:46] LABS: EOSINOPHILS % (AUTO) 1 % (0-10); HEMATOCRIT 36 % (35-52); LYMPHOCYTES # (AUTO) 1.2 10^3/uL (1.0-4.0); LYMPHOCYTES % (AUTO) 26 % (12-44); MEAN CORPUSCULAR HEMOGLOBIN 29 pg (25-34); MEAN CORPUSCULAR HGB CONC 33 g/dL (32-36); MEAN CORPUSCULAR VOLUME 88 fL (80-99); MEAN PLATELET VOLUME 10.3 fL (9.0-12.2); MONOCYTES % (AUTO) 7 % (0-12); NEUTROPHILS # (AUTO) 2.8 10^3/uL (1.8-7.8); NEUTROPHILS % (AUTO) 65 % (42-75); PLATELET COUNT 119 10^3/uL (130-400); WHITE BLOOD COUNT 4.4 10^3/uL (4.3-11.0)
[2023-01-21 06:07] LABS: ALBUMIN 3.1 GM/DL (3.2-4.5); POTASSIUM 4.6 MMOL/L (3.6-5.0)
[2023-01-21 06:08] LABS: CALCIUM 8.7 MG/DL (8.5-10.1)
--- NOTE | 2023-01-21 06:09 | Progress Note ---
Subjective Date Seen by a Provider: Jan 21, 2023 Time Seen by a Provider: 11:00 Subjective/Events-last exam Patient doing a lot better Up in a chair and is at the bedside Blood sugars are much better Insulin pump started No evidence of any UTI so we will discontinue antibiotic PT and OT will be consulted Discontinue catheter Review of Systems General: Fatigue, Malaise Focused Exam Lactate Level 01/19/23 06:26: Lactic Acid Level 2.49*H 01/19/23 08:25: Lactic Acid Level 2.71*H 01/19/23 10:20: Lactic Acid Level 3.06*H Objective Exam Last Set of Vital Signs Vital Signs Date Time Temp Pulse Resp B/P (MAP) Pulse Ox O2 Delivery O2 Flow Rate FiO2 01/21/23 03:24 37.2 83 18 153/73 (99) 96 Room Air 01/19/23 10:08 21 Capillary Refill : Less Than 3 Seconds I&O Intake and Output 01/21/23 00:00 Intake Total 5490 ml Output Total 4825 ml Balance 665 ml Intake Oral 290 ml IV Total 5200 ml Output Urine Total 4825 ml # Bowel Movements 1 General: Alert, Oriented X3, Cooperative, No Acute Distress Lungs: Clear to Auscultation, Normal Air Movement Heart: Regular Rate, Normal S1, Normal S2, No Murmurs Psych/Mental Status: Mental Status NL, Mood NL Results Lab Laboratory Tests 01/20/23 07:03: Glucometer 147H 01/20/23 07:59: Glucometer 155H 01/20/23 08:00: Sodium Level 134L, Potassium Level 4.0, Chloride Level 109H, Carbon Dioxide Level 20L, Anion Gap 5, Blood Urea Nitrogen 13, Creatinine 1.05, Estimat Glomerular Filtration Rate 57, BUN/Creatinine Ratio 12, Glucose Level 152H, Calcium Level 8.2L 01/20/23 09:05: Glucometer 168H 01/20/23 09:59: Glucometer 168H 01/20/23 11:09: Glucometer 164H 01/20/23 12:22: Glucometer 189H 01/20/23 13:19: Glucometer 209H 01/20/23 14:40: Glucometer 121H 01/20/23 15:46: Glucometer 102 01/20/23 19:15: Glucometer 46*L 01/20/23 20:02: Glucometer 99 01/21/23 04:57: Glucometer 115H 01/21/23 05:30: White Blood Count 4.4, Red Blood Count 4.07, Hemoglobin 11.9, Hematocrit 36, Mean Corpuscular Volume 88, Mean Corpuscular Hemoglobin 29, Mean Corpuscular Hemoglobin Concent 33, Red Cell Distribution Width 14.0, Platelet Count 119L, Mean Platelet Volume 10.3, Immature Granulocyte % (Auto) 1, Neutrophils (%) (Auto) 65, Lymphocytes (%) (Auto) 26, Monocytes (%) (Auto) 7, Eosinophils (%) (Auto) 1, Basophils (%) (Auto) 0, Neutrophils # (Auto) 2.8, Lymphocytes # (Auto) 1.2, Monocytes # (Auto) 0.3, Eosinophils # (Auto) 0.1, Basophils # (Auto) 0.0, Immature Granulocyte # (Auto) 0.0, Percent Immature Platelet Fraction 2.7, Sodium Level 138, Potassium Level 4.6, Chloride Level 109H, Calcium Level 8.7, Corrected Calcium 9.4, Albumin 3.1L Microbiology 01/19/23 MRSA Screen - Final, Complete MRSA not isolated Assessment/Plan Assessment/Plan Assess & Plan/Chief Complaint Assessment: DKA Parkinson's Dehydration HTN KAILYN Acute UTI status post Rocephin no evidence of any infection so discontinued Plan: Insulin pump Hep-Lock IV fluid Abx Ambulate NILE WILEY 4, 2023 06:09
[2023-01-21 06:10] LABS: TOTAL PROTEIN 5.7 GM/DL (6.4-8.2)
[2023-01-21 06:11] LABS: BILIRUBIN,TOTAL 0.4 MG/DL (0.1-1.0)
[2023-01-21 06:13] LABS: CREATININE SERUM 1.06 MG/DL (0.60-1.30)
[2023-01-21 06:16] LABS: MAGNESIUM 2.1 MG/DL (1.6-2.4)
[2023-01-21 07:20] VITALS: BP 162/77
[2023-01-21] MEDS: PANTOPRAZOLE 40 MG (PROTONIX) TAB PO SCH ×2 (08:32→19:39)
[2023-01-21] MEDS: CALCIUM CARBONATE 600 MG (CALCARB) TAB PO SCH ×2 (08:32→19:38)
[2023-01-21] MEDS: SENNOSIDES 8.6 MG (SENOKOT) TAB PO SCH ×2 (08:32→19:39)
[2023-01-21] MEDS: AMANTADINE 10 MG/ML SYRUP (SYMMETREL) CHARGE PER ML PO SCH (08:33)
[2023-01-21] MEDS: DOCUSATE SODIUM 100 MG (COLACE) CAP PO SCH ×2 (08:33→19:39)
[2023-01-21 11:26] VITALS: BP 149/80
[2023-01-21] MEDS ORDERED: PATIENT MAY USE OWN MED,SINGLE MED PO SCH (14:45)
[2023-01-21 16:13] VITALS: BP 156/98
[2023-01-21 19:39] VITALS: BP 125/85
[2023-01-21] MEDS: LATANOPROST 0.005% (XALATAN) OPHTH SOLN 2.5 ML OU SCH (19:40)
[2023-01-21] MEDS: [UNRECOGNIZED DRUG - REMARK] PO SCH (19:47)
[2023-01-22 00:10] VITALS: BP 106/63
[2023-01-22] MEDS: SUCRALFATE 1 GM (CARAFATE) TAB PO SCH (05:22)
[2023-01-22] MEDS: inSUlin ASPART (NovoLOG) 1 UNIT/0.01 ML (CHARGE PER UNIT) SC SCH ×2 (05:25→11:02)
[2023-01-22 05:29] LABS: BASOPHILS % (AUTO) 0 % (0-10); HEMOGLOBIN 11.4 g/dL (11.5-16.0)
[2023-01-22 05:31] LABS: EOSINOPHILS # (AUTO) 0.1 10^3/uL (0.0-0.3); EOSINOPHILS % (AUTO) 2 % (0-10); HEMATOCRIT 35 % (35-52); LYMPHOCYTES % (AUTO) 29 % (12-44); MEAN CORPUSCULAR HEMOGLOBIN 29 pg (25-34); MEAN CORPUSCULAR HGB CONC 33 g/dL (32-36); MEAN CORPUSCULAR VOLUME 89 fL (80-99); MEAN PLATELET VOLUME 10.4 fL (9.0-12.2); MONOCYTES # (AUTO) 0.2 10^3/uL (0.0-1.0); MONOCYTES % (AUTO) 6 % (0-12); NEUTROPHILS # (AUTO) 2.1 10^3/uL (1.8-7.8); NEUTROPHILS % (AUTO) 62 % (42-75); PLATELET COUNT 105 10^3/uL (130-400); WHITE BLOOD COUNT 3.4 10^3/uL (4.3-11.0)
[2023-01-22 05:44] LABS: POTASSIUM 5.1 MMOL/L (3.6-5.0)
[2023-01-22 05:45] LABS: CALCIUM 8.9 MG/DL (8.5-10.1)
[2023-01-22 05:46] LABS: TOTAL PROTEIN 5.5 GM/DL (6.4-8.2)
[2023-01-22 05:48] LABS: BILIRUBIN,TOTAL 0.7 MG/DL (0.1-1.0)
[2023-01-22 05:50] LABS: CREATININE SERUM 1.16 MG/DL (0.60-1.30)
[2023-01-22 05:53] LABS: MAGNESIUM 1.6 MG/DL (1.6-2.4)
[2023-01-22 07:39] VITALS: BP 136/65
[2023-01-22] MEDS: PANTOPRAZOLE 40 MG (PROTONIX) TAB PO SCH (08:25)
[2023-01-22] MEDS: CALCIUM CARBONATE 600 MG (CALCARB) TAB PO SCH (08:25)
[2023-01-22] MEDS: DOCUSATE SODIUM 100 MG (COLACE) CAP PO SCH (08:26)
[2023-01-22] MEDS: SENNOSIDES 8.6 MG (SENOKOT) TAB PO SCH (08:26)
[2023-01-22] MEDS: [UNRECOGNIZED DRUG - REMARK] PO SCH (08:26)
--- NOTE | 2023-01-22 09:43 | Discharge Summary ---
Diagnosis/Chief Complaint Date of Admission Jan 19, 2023 at 07:44 Date of Discharge Discharge Date: Jan 22, 2023 Discharge Diagnosis Assessment: DKA Parkinson's Dehydration HTN KAILYN Acute UTI status post Rocephin no evidence of any infection so discontinued Discharge Summary Discharge Physical Examination Allergies: Coded Allergies: Penicillins (Unverified Allergy, Intermediate, hives, 03/15/10) acetaminophen (Unverified Adverse Reaction, Unknown, due to glucose monitor, 11/22/21) Vitals & I&Os Vital Signs Date Time Temp Pulse Resp B/P (MAP) Pulse Ox O2 Delivery O2 Flow Rate FiO2 01/22/23 11:30 36.3 96 18 136/65 96 Room Air 01/19/23 10:08 21 General Appearance: Alert, Oriented X3, Cooperative Respiratory: Clear to Auscultation Cardiovascular: Regular Rate Psych/Mental Status: Mental Status NL Hospital Course Was the Problem List Reviewed?: Yes Uneventful hospital course after she was admitted for DKA and was placed on insulin drip in the ICU. Aggressive IV fluid resuscitation initiated. She did have encephalopathy from dehydration and DKA but that resolved. Home meds were restarted and ultimately insulin pump restarted with better sugar control. It was assessed that DKA was from steroid injection into the left hip and her insulin pump was not correctly connected to the abdominal wall when she presented to the ER Labs (last 24 hrs) Laboratory Tests 01/19/23 03:50: White Blood Count 14.1H, Red Blood Count 4.64, Hemoglobin 13.6, Hematocrit 42, Mean Corpuscular Volume 90, Mean Corpuscular Hemoglobin 29, Mean Corpuscular Hemoglobin Concent 33, Red Cell Distribution Width 13.4, Platelet Count 211, Mean Platelet Volume 10.6, Immature Granulocyte % (Auto) 1, Neutrophils (%) (Auto) 85H, Lymphocytes (%) (Auto) 9L, Monocytes (%) (Auto) 4, Eosinophils (%) (Auto) 0, Basophils (%) (Auto) 0, Neutrophils # (Auto) 11.9H, Lymphocytes # (Auto) 1.3, Monocytes # (Auto) 0.6, Eosinophils # (Auto) 0.0, Basophils # (Auto) 0.1, Immature Granulocyte # (Auto) 0.1, Neutrophils % (Manual) 84, Lymphocytes % (Manual) 10, Monocytes % (Manual) 2, Metamyelocytes % 1, Band Neutrophils 3, Millicent Cells SLIGHT, Elliptocytes SLIGHT, Venous Blood pH 7.26L, Venous Blood Partial Pressure CO2 54H, Venous Blood HCO3 23, Sodium Level 135, Potassium Level 4.5, Chloride Level 95L, Carbon Dioxide Level 20L, Anion Gap 20H, Blood Urea Nitrogen 23H, Creatinine 1.93H, Estimat Glomerular Filtration Rate 27, BUN/Creatinine Ratio 12, Glucose Level 663*H, Mean Blood Glucose 128H, Hemoglobin A1c 6.1H, Lactic Acid Level 4.31*H, Calcium Level 10.1, Corrected Calcium 10.0, Magnesium Level 1.9, Total Bilirubin 0.7, Aspartate Amino Transf (AST/SGOT) 20, Alanine Aminotransferase (ALT/SGPT) 21, Alkaline Phosphatase 83, Total Protein 7.3, Albumin 4.1, Amylase Level 19L, Lipase 14, Beta-Hydroxybutyrate (Chem panel) 3.48H 01/19/23 04:22: Urine Color YELLOW, Urine Clarity SL CLOUDY, Urine pH 6.0, Urine Specific [place] 1.010L, Urine Protein NEGATIVE, Urine Glucose (UA) 3+H, Urine Ketones 1+H, Urine Nitrite NEGATIVE, Urine Bilirubin NEGATIVE, Urine Urobilinogen 1.0, Urine Leukocyte Esterase TRACEH, Urine RBC (Auto) NEGATIVE, Urine RBC NONE, Urine WBC 25-50H, Urine Squamous Epithelial Cells >50H, Urine Crystals NONE, Urine Bacteria MODERATEH, Urine Casts NONE, Urine Hyaline Casts 2-5H, Urine Mucus SMALLH, Urine Culture Indicated NO 01/19/23 06:26: Lactic Acid Level 2.49*H 01/19/23 07:26: Glucometer 574*H 01/19/23 08:25: Sodium Level 137, Potassium Level 5.2H, Chloride Level 102, Carbon Dioxide Level 17L, Anion Gap 18H, Blood Urea Nitrogen 25H, Creatinine 1.60H, Estimat Glomerular Filtration Rate 34, BUN/Creatinine Ratio 16, Glucose Level 598*H, Lactic Acid Level 2.71*H, Calcium Level 8.7, Beta-Hydroxybutyrate (Chem panel) 5.83H 01/19/23 08:55: Glucometer 522*H 01/19/23 10:01: Glucometer 469*H 01/19/23 10:20: Sodium Level 137, Potassium Level 4.7, Chloride Level 103, Carbon Dioxide Level 14L, Anion Gap 20H, Blood Urea Nitrogen 26H, Creatinine 1.66H, Estimat Glomerular Filtration Rate 33, BUN/Creatinine Ratio 16, Glucose Level 526*H, Lactic Acid Level 3.06*H, Calcium Level 8.7 01/19/23 11:02: Glucometer 407*H 01/19/23 11:57: Glucometer 351H 01/19/23 13:02: Glucometer 295H 01/19/23 14:16: Glucometer 244H 01/19/23 15:06: Glucometer 224H 01/19/23 15:52: Glucometer 181H 01/19/23 16:19: Sodium Level 136, Potassium Level 4.1, Chloride Level 106, Carbon Dioxide Level 21, Anion Gap 9, Blood Urea Nitrogen 24H, Creatinine 1.45H, Estimat Glomerular Filtration Rate 39, BUN/Creatinine Ratio 17, Glucose Level 192H, Calcium Level 8.4L 01/19/23 16:56: Glucometer 180H 01/19/23 18:06: Glucometer 200H 01/19/23 19:00: Glucometer 175H 01/19/23 19:58: Glucometer 146H 01/19/23 20:53: Glucometer 134H 01/19/23 21:55: Glucometer 133H 01/19/23 22:59: Glucometer 112H 01/19/23 23:52: Glucometer 115H 01/20/23 00:17: Sodium Level 136, Potassium Level 3.9, Chloride Level 109H, Carbon Dioxide Level 21, Anion Gap 6, Blood Urea Nitrogen 18, Creatinine 1.24, Estimat Glomerular Filtration Rate 47, BUN/Creatinine Ratio 15, Glucose Level 117H, Calcium Level 8.2L 01/20/23 01:00: Glucometer 109 01/20/23 01:58: Glucometer 116H 01/20/23 02:55: Glucometer 119H 01/20/23 04:19: Glucometer 133H 01/20/23 04:57: Glucometer 136H 01/20/23 04:58: White Blood Count 9.7, Red Blood Count 3.48L, Hemoglobin 10.2#L, Hematocrit 31L, Mean Corpuscular Volume 88, Mean Corpuscular Hemoglobin 29, Mean Corpuscular Hemoglobin Concent 33, Red Cell Distribution Width 13.8, Platelet Count 128L, Mean Platelet Volume 10.1, Immature Granulocyte % (Auto) 0, Neutrophils (%) (Auto) 77H, Lymphocytes (%) (Auto) 15, Monocytes (%) (Auto) 7, Eosinophils (%) (Auto) 0, Basophils (%) (Auto) 0, Neutrophils # (Auto) 7.5, Lymphocytes # (Auto) 1.5, Monocytes # (Auto) 0.7, Eosinophils # (Auto) 0.0, Basophils # (Auto) 0.0, Immature Granulocyte # (Auto) 0.0, Percent Immature Platelet Fraction 2.1, Sodium Level 133L, Potassium Level 4.0, Chloride Level 109H, Carbon Dioxide Level 20L, Anion Gap 4L, Blood Urea Nitrogen 15, Creatinine 1.09, Estimat Glomerular Filtration Rate 54, BUN/Creatinine Ratio 14, Glucose Level 139H, Calcium Level 8.1L, Corrected Calcium 9.1, Phosphorus Level 1.9L, Magnesium Level 1.2L, Total Bilirubin 0.3, Aspartate Amino Transf (AST/SGOT) 16, Alanine Aminotransferase (ALT/SGPT) 13, Alkaline Phosphatase 51, Total Protein 4.8L, Alb umin 2.7L, Beta-Hydroxybutyrate (Chem panel) 0.08 01/20/23 05:59: Glucometer 143H 01/20/23 07:03: Glucometer 147H 01/20/23 07:59: Glucometer 155H 01/20/23 08:00: Sodium Level 134L, Potassium Level 4.0, Chloride Level 109H, Carbon Dioxide Level 20L, Anion Gap 5, Blood Urea Nitrogen 13, Creatinine 1.05, Estimat Glomeru lar Filtration Rate 57, BUN/Creatinine Ratio 12, Glucose Level 152H, Calcium Level 8.2L 01/20/23 09:05: Glucometer 168H 01/20/23 09:59: Glucometer 168H 01/20/23 11:09: Glucometer 164H 01/20/23 12:22: Glucometer 189H 01/20/23 13:19: Glucometer 209H 01/20/23 14:40: Glucometer 121H 01/20/23 15:46: Glucometer 102 01/20/23 19:15: Glucometer 46*L 01/20/23 20:02: Glucometer 99 01/21/23 04:57: Glucometer 115H 01/21/23 05:30: White Blood Count 4.4, Red Blood Count 4.07, Hemoglobin 11.9, Hematocrit 36, Mean Corpuscular Volume 88, Mean Corpuscular Hemoglobin 29, Mean Corpuscular He moglobin Concent 33, Red Cell Distribution Width 14.0, Platelet Count 119L, Mean Platelet Volume 10.3, Immature Granulocyte % (Auto) 1, Neutrophils (%) (Auto) 65, Lymphocytes (%) (Auto) 26, Monocytes (%) (Auto) 7, Eosinophils (%) (Auto) 1, Basophils (%) (Auto) 0, Neutrophils # (Auto) 2.8, Lymphocytes # (Auto) 1.2, Monocytes # (Auto) 0.3, Eosinophils # (Auto) 0.1, Basophils # (Auto) 0.0, Immature Granulocyte # (Auto) 0.0, Percent Immature Platelet Fraction 2.7, Sodium Level 138, Potassium Level 4.6, Chloride Level 109H, Carbon Dioxide Level 23, Anion Gap 6, Blood Urea Nitrogen 6L, Creatinine 1.06, Estimat Glomerular Filtration Rate 56, BUN/Creatinine Ratio 6, Glucose Level 114H, Calcium Level 8.7, Corrected Calcium 9.4, Magnesium Level 2.1, Total Bilirubin 0.4, Aspartate Amino Transf (AST/SGOT) 20, Alanine Aminotransferase (ALT/SGPT) 15, Alkaline Phosphatase 70, Total Protein 5.7L, Albumin 3.1L 01/21/23 09:05: Glucometer 289H 01/21/23 11:31: Glucometer 221H 01/21/23 14:02: Glucometer 281H 01/21/23 21:07: Glucometer 225H 01/22/23 05:09: White Blood Count 3.4L, Red Blood Count 3.93, Hemoglobin 11.4L, Hematocrit 35, Mean Corpuscular Volume 89, Mean Corpuscular Hemoglobin 29, Mean Corpuscular Hemoglobin Concent 33, Red Cell Distribution Width 13.8, Platelet Count 105L, Mean Platelet Volume 10.4, Immature Granulocyte % (Auto) 1, Neutrophils (%) (Auto) 62, Lymphocytes (%) (Auto) 29, Monocytes (%) (Auto) 6, Eosinophils (%) (Auto) 2, Basophils (%) (Auto) 0, Neutrophils # (Auto) 2.1, Lymphocytes # (Auto) 1.0, Monocytes # (Auto) 0.2, Eosinophils # (Auto) 0.1, Basophils # (Auto) 0.0, Immature Granulocyte # (Auto) 0.0, Percent Immature Platelet Fraction 2.7, Sodium Level 135, Potassium Level 5.1H, Chloride Level 104, Carbon Dioxide Level 25, Anion Gap 6, Blood Urea Nitrogen 10, Creatinine 1.16, Estimat Glomerular Filtration Rate 50, BUN/Creatinine Ratio 9, Glucose Level 319H, Calcium Level 8.9, Corrected Calcium 9.7, Magnesium Level 1.6, Total Bilirubin 0.7, Aspartate Amino Transf (AST/SGOT) 17, Alanine Aminotransferase (ALT/SGPT) 16, Alkaline Phosphatase 73, Total Protein 5.5L, Albumin 3.0L 01/22/23 05:21: Glucometer 310H 01/22/23 10:43: Glucometer 280H Microbiology 01/19/23 MRSA Screen - Final, Complete MRSA not isolated 01/19/23 Urine Culture - Final, Complete Enterococcus faecalis Pending Labs Microbiology Date/Time Source Procedure Growth Status 01/19/23 09:20 Nasal MRSA Screen - Final MRSA not isolated Complete 01/19/23 04:22 Urine Straight Cath, In/Out Urine Culture - Final Enterococcus faecalis Complete Laboratory Tests 01/19/23 03:50: White Blood Count 14.1, Red Blood Count 4.64, Hemoglobin 13.6, Hematocrit 42, Mean Corpuscular Volume 90, Mean Corpuscular Hemoglobin 29, Mean Corpuscular Hemoglobin Concent 33, Red Cell Distribution Width 13.4, Platelet Count 211, Mean Platelet Volume 10.6, Immature Granulocyte % (Auto) 1, Neutrophils (%) (Auto) 85, Lymphocytes (%) (Auto) 9, Monocytes (%) (Auto) 4, Eosinophils (%) (Auto) 0, Basophils (%) (Auto) 0, Neutrophils # (Auto) 11.9, Lymphocytes # (Auto) 1.3, Monocytes # (Auto) 0.6, Eosinophils # (Auto) 0.0, Basophils # (Auto) 0.1, Immature Granulocyte # (Auto) 0.1, Neutrophils % (Manual) 84, Lymphocytes % (Manual) 10, Monocytes % (Manual) 2, Metamyelocytes % 1, Band Neutrophils 3, Millicent Cells SLIGHT, Elliptocytes SLIGHT, Venous Blood pH 7.26, Venous Blood Partial Pressure CO2 54, Venous Blood HCO3 23, Sodium Level 135, Potassium Level 4.5, Chloride Level 95, Carbon Dioxide Level 20, Anion Gap 20, Blood Urea Nitrogen 23, Creatinine 1.93, Estimat Glomerular Filtration Rate 27, BUN/Creatinine Ratio 12, Glucose Level 663, Mean Blood Glucose 128, Hemoglobin A1c 6.1, Lactic Acid Level 4.31, Calcium Level 10.1, Corrected Calcium 10.0, Magnesium Level 1.9, Total Bilirubin 0.7, Aspartate Amino Transf (AST/SGOT) 20, Alanine Aminotransferase (ALT/SGPT) 21, Alkaline Phosphatase 83, Total Protein 7.3, Albumin 4.1, Amylase Level 19, Lipase 14, Beta-Hydroxybutyrate (Chem panel) 3.48 01/19/23 04:22: Urine Color YELLOW, Urine Clarity SL CLOUDY, Urine pH 6.0, Urine Specific [place] 1.010, Urine Protein NEGATIVE, Urine Glucose (UA) 3+, Urine Ketones 1+, Urine Nitrite NEGATIVE, Urine Bilirubin NEGATIVE, Urine Urobilinogen 1.0, Urine Leukocyte Esterase TRACE, Urine RBC (Auto) NEGATIVE, Urine RBC NONE, Urine WBC 25-50, Urine Squamous Epithelial Cells >50, Urine Crystals NONE, Urine Bacteria MODERATE, Urine Casts NONE, Urine Hyaline Casts 2-5, Urine Mucus SMALL, Urine Culture Indicated NO 01/19/23 06:26: Lactic Acid Level 2.49 01/19/23 07:26: Glucometer 574 01/19/23 08:25: Sodium Level 137, Potassium Level 5.2, Chloride Level 102, Carbon Dioxide Level 17, Anion Gap 18, Blood Urea Nitrogen 25, Creatinine 1.60, Estimat Glomerular Filtration Rate 34, BUN/Creatinine Ratio 16, Glucose Level 598, Lactic Acid Level 2.71, Calcium Level 8.7, Beta-Hydroxybutyrate (Chem panel) 5.83 01/19/23 08:55: Glucometer 522 01/19/23 10:01: Glucometer 469 01/19/23 10:20: Sodium Level 137, Potassium Level 4.7, Chloride Level 103, Carbon Dioxide Level 14, Anion Gap 20, Blood Urea Nitrogen 26, Creatinine 1.66, Estimat Glomerular Filtration Rate 33, BUN/Creatinine Ratio 16, Glucose Level 526, Lactic Acid Level 3.06, Calcium Level 8.7 01/19/23 11:02: Glucometer 407 01/19/23 11:57: Glucometer 351 01/19/23 13:02: Glucometer 295 01/19/23 14:16: Glucometer 244 01/19/23 15:06: Glucometer 224 01/19/23 15:52: Glucometer 181 01/19/23 16:19: Sodium Level 136, Potassium Level 4.1, Chloride Level 106, Carbon Dioxide Level 21, Anion Gap 9, Blood Urea Nitrogen 24, Creatinine 1.45, Estimat Glomerular Filtration Rate 39, BUN/Creatinine Ratio 17, Glucose Level 192, Calcium Level 8.4 01/19/23 16:56: Glucometer 180 01/19/23 18:06: Glucometer 200 01/19/23 19:00: Glucometer 175 01/19/23 19:58: Glucometer 146 01/19/23 20:53: Glucometer 134 01/19/23 21:55: Glucometer 133 01/19/23 22:59: Glucometer 112 01/19/23 23:52: Glucometer 115 01/20/23 00:17: Sodium Level 136, Potassium Level 3.9, Chloride Level 109, Carbon Dioxide Level 21, Anion Gap 6, Blood Urea Nitrogen 18, Creatinine 1.24, Estimat Glomerular Filtration Rate 47, BUN/Creatinine Ratio 15, Glucose Level 117, Calcium Level 8.2 01/20/23 01:00: Glucometer 109 01/20/23 01:58: Glucometer 116 01/20/23 02:55: Glucometer 119 01/20/23 04:19: Glucometer 133 01/20/23 04:57: Glucometer 136 01/20/23 04:58: White Blood Count 9.7, Red Blood Count 3.48, Hemoglobin 10.2, Hematocrit 31, Mean Corpuscular Volume 88, Mean Corpuscular Hemoglobin 29, Mean Corpuscular Hemoglobin Concent 33, Red Cell Distribution Width 13.8, Platelet Count 128, Mean Platelet Volume 10.1, Immature Granulocyte % (Auto) 0, Neutrophils (%) (Auto) 77, Lymphocytes (%) (Auto) 15, Monocytes (%) (Auto) 7, Eosinophils (%) (Auto) 0, Basophils (%) (Auto) 0, Neutrophils # (Auto) 7.5, Lymphocytes # (Auto) 1.5, Monocytes # (Auto) 0.7, Eosinophils # (Auto) 0.0, Basophils # (Auto) 0.0, Immature Granulocyte # (Auto) 0.0, Percent Immature Platelet Fraction 2.1, Sodium Level 133, Potassium Level 4.0, Chloride Level 109, Carbon Dioxide Level 20, Anion Gap 4, Blood Urea Nitrogen 15, Creatinine 1.09, Estimat Glomerular Filtration Rate 54, BUN/Creatinine Ratio 14, Glucose Level 139, Calcium Level 8.1, Corrected Calcium 9.1, Phosphorus Level 1.9, Magnesium Level 1.2, Total Bilirubin 0.3, Aspartate Amino Transf (AST/SGOT) 16, Alanine Aminotransferase (ALT/SGPT) 13, Alkaline Phosphatase 51, Total Protein 4.8, Albumin 2.7, Beta- Hydroxybutyrate (Chem panel) 0.08 01/20/23 05:59: Glucometer 143 01/20/23 07:03: Glucometer 147 01/20/23 07:59: Glucometer 155 01/20/23 08:00: Sodium Level 134, Potassium Level 4.0, Chloride Level 109, Carbon Dioxide Level 20, Anion Gap 5, Blood Urea Nitrogen 13, Creatinine 1.05, Estimat Glomerular Filtration Rate 57, BUN/Creatinine Ratio 12, Glucose Level 152, Calcium Level 8.2 01/20/23 09:05: Glucometer 168 01/20/23 09:59: Glucometer 168 01/20/23 11:09: Glucometer 164 01/20/23 12:22: Glucometer 189 01/20/23 13:19: Glucometer 209 01/20/23 14:40: Glucometer 121 01/20/23 15:46: Glucometer 102 01/20/23 19:15: Glucometer 46 01/20/23 20:02: Glucometer 99 01/21/23 04:57: Glucometer 115 01/21/23 05:30: White Blood Count 4.4, Red Blood Count 4.07, Hemoglobin 11.9, Hematocrit 36, Mean Corpuscular Volume 88, Mean Corpuscular Hemoglobin 29, Mean Corpuscular Hemoglobin Concent 33, Red Cell Distribution Width 14.0, Platelet Count 119, Mean Platelet Volume 10.3, Immature Granulocyte % (Auto) 1, Neutrophils (%) (Auto) 65, Lymphocytes (%) (Auto) 26, Monocytes (%) (Auto) 7, Eosinophils (%) (Auto) 1, Basophils (%) (Auto) 0, Neutrophils # (Auto) 2.8, Lymphocytes # (Auto) 1.2, Monocytes # (Auto) 0.3, Eosinophils # (Auto) 0.1, Basophils # (Auto) 0.0, Immature Granulocyte # (Auto) 0.0, Percent Immature Platelet Fraction 2.7, Sodium Level 138, Potassium Level 4.6, Chloride Level 109, Carbon Dioxide Level 23, Anion Gap 6, Blood Urea Nitrogen 6, Creatinine 1.06, Estimat Glomerular Filtration Rate 56, BUN/Creatinine Ratio 6, Glucose Level 114, Calcium Level 8.7, Corrected Calcium 9.4, Magnesium Level 2.1, Total Bilirubin 0.4, Aspartate Amino Transf (AST/SGOT) 20, Alanine Aminotransferase (ALT/SGPT) 15, Alkaline Phosphatase 70, Total Protein 5.7, Albumin 3.1 01/21/23 09:05: Glucometer 289 01/21/23 11:31: Glucometer 221 01/21/23 14:02: Glucometer 281 01/21/23 21:07: Glucometer 225 01/22/23 05:09: White Blood Count 3.4, Red Blood Count 3.93, Hemoglobin 11.4, Hematocrit 35, Mean Corpuscular Volume 89, Mean Corpuscular Hemoglobin 29, Mean Corpuscular Hemoglobin Concent 33, Red Cell Distribution Width 13.8, Platelet Count 105, Mean Platelet Volume 10.4, Immature Granulocyte % (Auto) 1, Neutrophils (%) (Auto) 62, Lymphocytes (%) (Auto) 29, Monocytes (%) (Auto) 6, Eosinophils (%) (Auto) 2, Basophils (%) (Auto) 0, Neutrophils # (Auto) 2.1, Lymphocytes # (Auto) 1.0, Monocytes # (Auto) 0.2, Eosinophils # (Auto) 0.1, Basophils # (Auto) 0.0, Immature Granulocyte # (Auto) 0.0, Percent Immature Platelet Fraction 2.7, Sodium Level 135, Potassium Level 5.1, Chloride Level 104, Carbon Dioxide Level 25, Anion Gap 6, Blood Urea Nitrogen 10, Creatinine 1.16, Estimat Glomerular Filtration Rate 50, BUN/Creatinine Ratio 9, Glucose Level 319, Calcium Level 8.9, Corrected Calcium 9.7, Magnesium Level 1.6, Total Bilirubin 0.7, Aspartate Amino Transf (AST/SGOT) 17, Alanine Aminotransferase (ALT/SGPT) 16, Alkaline Phosphatase 73, Total Protein 5.5, Albumin 3.0 01/22/23 05:21: Glucometer 310 01/22/23 10:43: Glucometer 280 Discharge Home Medications: Active Scripts Active Reported Pantoprazole Sodium 40 Mg Tablet.dr 40 Mg PO BID Sucralfate 1 Gram Tablet 1 Gm PO ACHS MAY MAKE INTO A SLURRY Lum[place] (Bimatoprost) 0.01 % Drops 1 Drop OU HS Calcium (Calcium Carbonate) 600 Mg Calcium (1500 Mg) Tablet 600 Mg PO BID Novolog (Insulin Aspart) 100 Unit/Ml Susp Units SC UD USES VIA PUMP Amantadine (Amantadine HCl) 100 Mg Tablet 50 Mg PO BID TAKES OF A 100MG TAB Instructions to patient/family Please see electronic discharge instructions given to patient. NILE WILEY DO Jan 22, 2023 09:43
--- NOTE | 2023-01-22 10:27 | Physical Therapy Progress Note ---
Therapy Progress Note Patient up independently and will be dismissing to home on this date. PT to dismiss patient from services MEGHA CARRENO PT Jan 22, 2023 10:27
--- NOTE | 2023-01-22 10:41 | Occ Therapy Progress Note ---
Therapy Progress Note Patient up independently and dressed fully, will be dismissing to home on this date. OT to dismiss patient from services GUICHO WEN OT Jan 22, 2023 10:41
[2023-01-22 11:30] VITALS: BP 136/65
--- NOTE | 2023-01-24 14:47 | Physician Query Clarification ---
PQ-Further Specificity Admission/Discharge Admission Date: Jan 19, 2023 at 07:44 Discharge Date: Jan 22, 2023 at 11:30 Dr. Guerra, The medical record reflects the following clinical scenario: History/Risk Factors: DKA 1, KAILYN, UTI, Parkinson's, dehydration Clinical Findings: Lactic acid 4.31, Bun 23, Creatinine 1.93 Treatment: IVF, insulin drip Question: Can you further specify the encephalopathy per the clinical indicators above? Please document a response in the Progress Notes or Discharge Summary. 1. metabolic encephalopathy 2. encephalopathy not further specified 3. Other, with explanation of the clinical findings. 4. Clinically undetermined, no explanation for the clinical findings. PHYSICIAN RESPONSE Can you specify per above: 1 In responding to this query, please exercise your independent professional judgment. The purpose of this communication is to more accurately reflect the complexity of your patients condition. The fact that a question is asked does not imply that any particular answer is desired or expected. Thank you for your timely response to this clarification. Requestors name: Matthew THIS PHYSICIAN QUERY FORM IS A PERMANENT PART OF THE MEDICAL RECORD MATTHEW VAZ Jan 24, 2023 14:47 NILE GUERRA DO Jan 24, 2023 20:53
== END 2023-01-22 11:30 | disposition home or self-care (01) | DRG 637 ==
LOC: EDUNIT# 03:23 → ER 03:26 → ICU 07:44 → 4TH 01-20 16:35
PROVIDERS: ADMIT Internal Medicine; ATTEND Internal Medicine
DX: E10.10 Type 1 diabetes mellitus with ketoacidosis without coma (principal); G93.41 Metabolic encephalopathy; N17.9 Acute kidney failure, unspecified; N39.0 Urinary tract infection, site not specified; Z79.4 Long term (current) use of insulin; G20 Parkinson's disease; E86.0 Dehydration; I10 Essential (primary) hypertension; I95.2 Hypotension due to drugs; T40.2X5A Adverse effect of other opioids, initial encounter; K21.9 Gastro-esophageal reflux disease without esophagitis; M19.90 Unspecified osteoarthritis, unspecified site; H40.9 Unspecified glaucoma; H91.90 Unspecified hearing loss, unspecified ear; Z79.899 Other long term (current) drug therapy; Z88.0 Allergy status to penicillin; Z87.898 Personal history of other specified conditions
CPT/HCPCS: 36415; 51702; 71045; 80048; 80053; 81000; 82010; 82150; 82805; 82947; 83036; 83605; 83690; 83735; 84100; 85007; 85025; 85027; 87077; 87081; 87088; 87186; 93005; 93041

== ENCOUNTER 2023-01-23 08:27 | Emergency (ER) | payer MEDICARE, OTHER ==
[~2023-01-23] VITALS: Ht 160 cm; Wt 54.4 kg
[~2023-01-23 08:27] MED LIST changes: +SUCR1TAB PO
--- NOTE | 2023-01-23 09:32 | ED General ---
General Chief Complaint: Glucose Problems Stated Complaint: DIABETES | LOW BLOOD SUGAR Nursing Triage Note: pt presents to ed via pov from home with complaints of difficulty with her blood sugars after recieving a steriod injection a few days ago. pt was seen in the hospital and dicharged home yesterday after getting them stabilized. pt reports pt blood sugar dropped last night and he had her eat some candy which seemed to help. pt reports pt seems to be more confused than normal. Source of Information: Patient, Family () Exam Limitations: No Limitations History of Present Illness Date Seen by Provider: Jan 23, 2023 Time Seen by Provider: 09:22 Initial Comments Patient is a 72yo female who presents with her , concern for weakness this morning, low blood sugar and states a brief period where her speech didnt make sense. He states they were just discharged yesterday after an admission for DKA and insulin pump malfunction. She went home yesterday, was fine. And then early this morning had these symptoms. She has a history of DM and parkinson's. This morning she put her own sensor on for her pump. was not present, he thinks the sensor for the pump may not be attached correctly. No vomiting. Patient is currently denying any symptoms. She does not have a headache, nausea, CP, SOB, abdominal pain or urinary complaints. She states the only reason she is here is because her wanted her to get seen. Her insulin pump is steadily alarming a warning of no connestion to sensor. Blood sugar on arrival a little over 200. Timing/Duration: 4-6 Hours Severity: Mild Associated Systoms: Denies Symptoms Allergies and Home Medications Allergies Coded Allergies: Penicillins (Unverified Allergy, Intermediate, hives, 03/15/10) acetaminophen (Unverified Adverse Reaction, Unknown, due to glucose monitor, 11/22/21) Patient Home Medication List Home Medication List Reviewed: Yes Amantadine HCl (Amantadine) 100 Mg Tablet, 50 MG PO BID, (Reported) Entered as Reported by: COLBY LLANOS on 12/25/22 1508 Bimatoprost (Lumigan) 0.01 % Drops, 1 DROP OU HS, (Reported) Entered as Reported by: COLBY LLANOS on 12/25/22 1509 Calcium Carbonate (Calcium) 600 Mg Calcium (1500 Mg) Tablet, 600 MG PO BID, (Reported) Entered as Reported by: COLBY LLANOS on 12/25/22 1508 Insulin Aspart (Novolog) 100 Unit/Ml Susp, UNITS SC UD, (Reported) Entered as Reported by: COLBY LLANOS on 12/25/22 1508 Pantoprazole Sodium (Pantoprazole Sodium) 40 Mg Tablet.dr, 40 MG PO BID, (Reported) Entered as Reported by: COLBY LLANOS on 01/19/23 1150 Sucralfate (Sucralfate) 1 Gram Tablet, 1 GM PO ACHS, (Reported) Entered as Reported by: COLBY LLANOS on 01/19/23 1150 Discontinued Medications Fluconazole (Fluconazole) 100 Mg Tablet, 100 MG PO DAILY Discontinued Reason: No Longer Taking Prescribed by: CRISTINE STUBBS on 12/28/22 09 Pantoprazole Sodium (Pantoprazole Sodium) 40 Mg Tablet.dr, 40 MG PO BID Discontinued Reason: No Longer Taking Prescribed by: CRISTINE STUBBS on 12/28/22 1721 Sucralfate (Carafate) 1 Gram Tablet, 1 GM PO ACHS Discontinued Reason: No Longer Taking Prescribed by: CRISTINE STUBBS on 12/28/22 1721 Sulfamethoxazole/Trimethoprim (Bactrim Ds Tablet) 800 Mg-160 Mg Tablet, 1 EACH PO BID Discontinued Reason: No Longer Taking Prescribed by: CRISTINE STUBBS on 12/28/22921 Review of Systems Review of Systems Constitutional: see HPI EENTM: no symptoms reported Respiratory: no symptoms reported Cardiovascular: no symptoms reported Gastrointestinal: no symptoms reported Musculoskeletal: no symptoms reported Skin: no symptoms reported Psychiatric/Neurological: No Symptoms Reported Past Kwzligv-Colzgq-Admnor Hx Patient Social History Tobacco Use?: No Substance use?: No Alcohol Use?: No Pt feels they are or have been: No Past Medical History Surgery/Hospitalization HX: dm-1, parkinsons Surgeries: Yes (EGD ) Currently Using CPAP: No Currently Using BIPAP: No Cardiac: Yes Hypertension Neurological: Yes Parkinson's Disease Reproductive Disorders: No Sexually Transmitted Disease: No HIV/AIDS: No Genitourinary: Yes Bladder Infection Gastrointestinal: Yes (GASTRITIS; EGS 12/28/[address] GOLDSTEIN) Gastroesophageal Reflux, Leyva's Esophagus, Esophagitis, Hiatal Hernia Musculoskeletal: Yes Arthritis Endocrine: Yes Diabetes, Insulin dep HEENT: Yes Glaucoma Loss of Vision: Denies Hearing Impairment: Hard of Hearing Did You Recieve Any Treatments: No Psychosocial: No Integumentary: No Blood Disorders: No Family Medical History Hypertension Physical Exam Vital Signs Vital Signs - First Documented 01/23/23 08:59 Temp 37.2 Pulse 107 Resp 16 B/P (MAP) 165/81 (109) Pulse Ox 96 Capillary Refill : Less Than 3 Seconds Height, Weight, BMI Height: '" Weight: lbs. oz. kg; 21.00 BMI Method:Stated General Appearance: No Apparent Distress, Chronically ill, Thin Eyes: Bilateral Eye Normal Inspection, Bilateral Eye PERRL, Bilateral Eye EOMI HEENT: PERRL/EOMI Neck: Normal Inspection Respiratory: Lungs Clear, Normal Breath Sounds, No Accessory Muscle Use, No Respiratory Distress Cardiovascular: Regular Rate, Rhythm, Normal Peripheral Pulses Gastrointestinal: Non Tender, Soft, Other ((insulin pump to anterior abdomen with sensors attached)) Extremity: Normal Inspection, Other (fine resting tremor UE bilat) Neurologic/Psychiatric: Alert, Oriented x3, No Motor/Sensory Deficits, Other (f lat affect) Skin: Warm/Dry, Pallor Progress/Results/Core Measures Suspected Sepsis SIRS Temperature: Pulse: 107 Respiratory Rate: 16 Blood Pressure 165 /81 Mean: 109 Laboratory Tests 01/23/23 09:09: Creatinine 1.20 Results/Orders Lab Results Laboratory Tests Test 01/23/23 09:00 01/23/23 09:09 01/23/23 11:26 Range/Units Glucometer 283 H 266 H 70-110 MG/DL Sodium Level 134 L 135-145 MMOL/L Potassium Level 4.4 3.6-5.0 MMOL/L Chloride Level 100 98-107 MMOL/L Carbon Dioxide Level 22 21-32 MMOL/L Anion Gap 12 5-14 MMOL/L Blood Urea Nitrogen 15 7-18 MG/DL Creatinine 1.20 0.60-1.30 MG/DL Estimat Glomerular Filtration Rate 48 BUN/Creatinine Ratio 13 Glucose Level 291 H 70-105 MG/DL Calcium Level 9.7 8.5-10.1 MG/DL My Orders Orders - KRYSTAL CHAU MD Ed Iv/Invasive Line Start (01/23/23 09:37) Basic Metabolic Panel (01/23/23 09:37) Accucheck Stat ONCE (01/23/23 09:37) Vital Signs/I&O 01/23/23 01/23/23 08:59 11:33 Temp 37.2 Pulse 107 94 Resp 16 18 B/P (MAP) 165/81 (109) 153/76 Pulse Ox 96 98 Capillary Refill : Less Than 3 Seconds Blood Pressure Mean: 109 Point of Care Testing Finger Stick Blood Glucose: 283 Progress Note : Time: 10:50 Progress Note Patient seen and evaluated by me. Eval today includes a physical exam and accu check x2 and BMP. Pertinent physical exam findings - frail elderly female, with parkinsonian tremor, flat affect - no complaints. Stable VS. Moist oral mucosa. SLightly tachy - regular rhythm, clear lungs. Soft nontender abdomen. No focal neuro deficits. DDx based on H/P includes hypoglycemia, acute kidney injury/dehydration, hyperglycemia/ Labs independently interpreted by me - BMP generally normal - glucose 291. Normal electrolytes. Patient monitored. remained asymptommatic. Long discussion regarding the insulin pump and need to replace the sensor to ensure accurate blood sugar readings and insulin dosing. We do not have a music educator today well versed in pumps - the patient's states that they had their last education with a provider from [facility]. I obtained her contact info and advised they call [facility] to schedule this. I foresee this to possibly be an ongoing issue. No clinical or objective findings to support the need for further labs or imaging. Again , patient is without complaints. She is alert and oriented. Continues to feel at baseling. Return precautions provided in both verbal and written format. All questions are sought and answered. Departure Impression Primary Impression: Weakness Disposition: 01 HOME, SELF-CARE Condition: Stable Departure-Patient Inst. Decision time for Depature: 10:56 Referrals: CRISTINE STUBBS MD (PCP/Family) Primary Care Physician Patient Instructions: Weakness ED Add. Discharge Instructions: Please follow up with the Shredder Tender at [facility] today - call [phone] and ask for her. Please replace her sensor when you get home. If you have any further problems with the pump or blood sugar issues please return to the Emergency Department for re-evaluation. Copy Copies To 1: CRISTINE STUBBS MD, KATHRYN M MD Jan 23, 2023 09:32
[2023-01-23 09:46] LABS: POTASSIUM 4.4 MMOL/L (3.6-5.0)
[2023-01-23 09:47] LABS: CALCIUM 9.7 MG/DL (8.5-10.1)
[2023-01-23 09:52] LABS: CREATININE SERUM 1.2 MG/DL (0.60-1.30)
[2023-01-23 11:33] VITALS: BP 153/76
== END 2023-01-23 11:33 | disposition home or self-care (01) ==
LOC: EDUNIT# 08:27 → ER 08:29
DX: R53.1 Weakness (principal)
CPT/HCPCS: 36415; 80048; 82947